=== PATIENT | male | born 1965 | race Caucasian/White ===

== ENCOUNTER 2020-02-12 14:28 | Inpatient (IN) | payer BC, OTHER, SELFPAY ==
--- NOTE | 2020-02-12 15:28 | EDM.PDOC ---
ED HPI GENERAL MEDICAL PROBLEM - General Chief Complaint: Lower Extremity Injury/Pain Stated Complaint: [facility] Time Seen by Provider: 02/12/20 15:05 Source of Information: Reports: Patient, EMS History Limitations: Reports: No Limitations - History of Present Illness INITIAL COMMENTS - FREE TEXT/NARRATIVE: 54-year-old male had a lightheaded episode at home and stumbled and fell onto his right hip and right ankle. He is a poorly controlled type I diabetic with chronic neuropathy and retinopathy, has fairly frequent falls but this time he has more pain than usual and needed to be checked because he cannot bear weight on the right side. He is not concerned about the lightheadedness or glucose levels. EMS when O2 was placed this morning at 6 AM after his fall, he was assessed and decided to wait but he was not improving so ambulance went back out there and brought him in this afternoon. The fall happened 8 hours ago. Onset: Sudden Duration: Hour(s): (Fell 8 hours ago) Location: Reports: Lower Extremity, Right Associated Symptoms: Reports: Other (Has significant neuropathy but no acute changes) - Related Data Allergies Allergy/AdvReac Type Severity Reaction Status Date / Time liraglutide [From Victoza] Allergy Abdominal Verified 12/25/15 09:48 Pain metformin Allergy Diarrhea Verified 12/25/15 09:48 Home Meds: Home Meds atenoloL [Tenormin] 25 mg PO BEDTIME 06/22/13 [History] ClonazePAM [KlonoPIN] 2 mg PO BEDTIME 12/25/15 [History] Gabapentin [Neurontin] 1,600 mg PO TID 12/25/15 [History] Sertraline [Zoloft] 200 mg PO DAILY 12/25/15 [History] oxyCODONE HCl [Oxycodone HCl] 20 mg PO Q8H 12/25/15 [History] ARIPiprazole [Abilify] 2 mg PO DAILY 02/12/20 [History] Insulin NPH Hum/Reg Insulin Hm [Novolin 70-30 Flexpen] 20 unit SQ BIDAC 02/12/20 [History] Prazosin HCl [Prazosin] 1 mg PO DAILY 02/12/20 [History] Past Medical History Cardiovascular History: Reports: Arrhythmia, High Cholesterol Gastrointestinal History: Reports: Chronic Diarrhea, GERD, Other (See Below) Other Gastrointestinal History: Cdiff Genitourinary History: Reports: Other (See Below) Other Genitourinary History: difficulty urinating Musculoskeletal History: Reports: Other (See Below) Other Musculoskeletal History: neuropathy Neurological History: Reports: Neuropathy, Diabetic Psychiatric History: Reports: Anxiety, Depression Endocrine/Metabolic History: Reports: Diabetes, Type II - Infectious Disease History Infectious Disease History: Reports: C-Difficile, Chicken Pox - Past Surgical History GI Surgical History: Reports: EGD Other GI Surgeries/Procedures: esophagus, acid reflux Social & Family History - Caffeine Use Caffeine Use: Reports: Soda Review of Systems - Review of Systems Review Of Systems: See Below Constitutional: Denies: Fever Eyes: Reports: Blurred Vision, Other (Significant loss of vision in the right eye from retinopathy) Mouth/Throat: Reports: Other (Significant advanced dental decay) Respiratory: Denies: Shortness of Breath, Cough Cardiovascular: Denies: Chest Pain GI/Abdominal: Denies: Abdominal Pain Musculoskeletal: Reports: Other (Right hip and right ankle pain) Skin: Reports: Bruising (Bruises fairly easily) Neurological: Reports: Other (Significant peripheral neuropathy especially the lower extremities) ED EXAM, GENERAL - Physical Exam Exam: See Below Exam Limited By: No Limitations General Appearance: Alert, No Apparent Distress Eye Exam: Bilateral Eye: EOMI, PERRL Head: Atraumatic Respiratory/Chest: No Respiratory Distress Cardiovascular: Regular Rate, Rhythm GI/Abdominal: Soft, Non-Tender Extremities: Other (. Some tenderness around the right ankle but no swelling or deformity). No: Pedal Edema Neurological: Alert, Oriented Psychiatric: Normal Affect, Normal Mood Skin Exam: Warm, Dry, Other (Patient does have several shallow dry ulcerations on the lateral aspect of the right foot, and some smaller dry ulcerations on the left foot. None look infected, very little erythema.) Course - Vital Signs Last Recorded V/S: Last Vital Signs Temp 97.0 F 02/12/20 14:59 Pulse 70 02/12/20 16:24 Resp 12 02/12/20 16:24 BP 145/84 H 02/12/20 16:24 Pulse Ox 95 02/12/20 16:24 - Orders/Labs/Meds Orders: Active Orders 24 hr Category Date Time Status Ankle Min 3V Rt [CR] Stat Exams 02/12/20 14:35 Taken Hip Min 2V or 3V w Pelvis Rt [CR] Stat Exams 02/12/20 14:35 Taken Medication Orders Acetaminophen (Tylenol) 650 mg PO Q4H PRN PRN Reason: Pain (Mild 1-3)/fever Albuterol (Proventil Neb Soln) 2.5 mg NEB Q4H PRN PRN Reason: Shortness Of Breath/wheezing Atenolol (Tenormin) 25 mg PO BEDTIME [facility] Clonazepam (Klonopin) 2 mg PO BEDTIME [facility] Gabapentin (Neurontin) 1,600 mg PO TID [facility] Hydromorphone HCl (Dilaudid) 1 mg IVPUSH Q2H PRN PRN Reason: Pain (severe 7-10) Sodium Chloride (Normal Saline) 1,000 mls @ 75 mls/hr IV ASDIRECTED [facility] Insulin Human Lispro (Humalog) 0 unit SUBCUT QIDACANDBED [facility]; Protocol Lorazepam (Ativan) 0.5 mg IVPUSH Q4H PRN PRN Reason: Nausea/Vomiting Magnesium Hydroxide (Milk Of Magnesia) 30 ml PO Q12H PRN PRN Reason: Constipation Non-Formulary Medication (Aripiprazole [Abilify]) 2 mg PO DAILY [facility] Ondansetron HCl (Zofran) 4 mg IV Q6H PRN PRN Reason: Nausea/Vomiting Ondansetron HCl (Zofran Odt) 4 mg PO Q6H PRN PRN Reason: Nausea able to take PO Oxycodone HCl (Oxycodone) 20 mg PO Q8H [facility] Oxycodone HCl (Oxycodone) 20 mg PO Q4H PRN PRN Reason: Pain Prazosin HCl (Minpress) 1 mg PO DAILY [facility] Senna/Docusate Sodium (Senna Plus) 1 tab PO BID PRN PRN Reason: Constipation Sertraline HCl (Zoloft) 200 mg PO DAILY [facility] Labs: Laboratory Tests 02/12/20 02/12/20 02/12/20 Range/Units 15:40 15:40 15:40 WBC 11.7 H (4.5-11.0) K/uL RBC 5.43 (4.30-5.90) M/uL Hgb 15.2 H (12.0-15.0) g/dL Hct 44.1 (40.0-54.0) % MCV 81 (80-98) fL MCH 28 (27-31) pg MCHC 35 (32-36) % Plt Count 373 (150-400) K/uL Neut % (Auto) 76 H (36-66) % Lymph % (Auto) 11 L (24-44) % [place] % (Auto) 12 H (2-6) % Eos % (Auto) 1 L (2-4) % Baso % (Auto) 0 (0-1) % PT 10.2 (9.5-12.0) sec INR 0.93 (0.80-1.20) Sodium 126 L (140-148) mmol/L Potassium 4.2 (3.6-5.2) mmol/L Chloride 91 L (100-108) mmol/L Carbon Dioxide 27 (21-32) mmol/L Anion Gap 12.2 (5.0-14.0) mmol/L BUN 18 D (7-18) mg/dL Creatinine 1.2 (0.8-1.3) mg/dL Est Cr Clr Drug Dosing 75.82 mL/min Estimated GFR (MDRD) > 60 (>60) Glucose 514 H* (74-106) mg/dL Calcium 9.5 (8.5-10.1) mg/dL Meds: Medications Generic Name Dose Route Start Last Admin Trade Name Freq PRN Reason Stop Dose Admin Acetaminophen 650 mg 02/12/20 16:54 Tylenol PO Q4H PRN Pain (Mild 1-3)/fever Albuterol 2.5 mg 02/12/20 16:54 Proventil Neb Soln NEB Q4H PRN Shortness Of Breath/wheezing Atenolol 25 mg 02/12/20 21:00 Tenormin PO BEDTIME [facility] Clonazepam 2 mg 02/12/20 21:00 Klonopin PO BEDTIME [facility] Gabapentin 1,600 mg 02/12/20 21:00 Neurontin PO TID [facility] Hydromorphone HCl 1 mg 02/12/20 16:54 Dilaudid IVPUSH Q2H PRN Pain (severe 7-10) Sodium Chloride 1,000 mls @ 75 mls/hr 02/12/20 22:00 Normal Saline IV ASDIRECTED [facility] Insulin Human Lispro 0 unit 02/12/20 17:00 Humalog SUBCUT QIDACANDBED [facility] Protocol Lorazepam 0.5 mg 02/12/20 16:54 Ativan IVPUSH Q4H PRN Nausea/Vomiting Magnesium Hydroxide 30 ml 02/12/20 16:54 Milk Of Magnesia PO Q12H PRN Constipation Non-Formulary Medication 2 mg 02/13/20 09:00 Aripiprazole [Abilify] PO DAILY [facility] Ondansetron HCl 4 mg 02/12/20 16:54 Zofran IV Q6H PRN Nausea/Vomiting Ondansetron HCl 4 mg 02/12/20 16:54 Zofran Odt PO Q6H PRN Nausea able to take PO Oxycodone HCl 20 mg 02/12/20 22:00 Oxycodone PO Q8H [facility] Oxycodone HCl 20 mg 02/12/20 16:54 Oxycodone PO Q4H PRN Pain Prazosin HCl 1 mg 02/13/20 09:00 Minpress PO DAILY [facility] Senna/Docusate Sodium 1 tab 02/12/20 16:54 Senna Plus PO BID PRN Constipation Sertraline HCl 200 mg 02/13/20 09:00 Zoloft PO DAILY [facility] Discontinued Medications Generic Name Dose Route Start Last Admin Trade Name Freq PRN Reason Stop Dose Admin Hydromorphone HCl 0.5 mg 02/12/20 15:42 02/12/20 15:47 Dilaudid IVPUSH 02/12/20 15:43 0.5 mg ONETIME ONE Administration Insulin Human Regular 20 unit 02/12/20 16:14 02/12/20 16:32 Humulin R SUBCUT 02/12/20 16:15 20 unit ONETIME ONE Administration - Re-Assessments/Exams Free Text/Narrative Re-Assessment/Exam: 02/12/20 15:29 Right hip x-ray and right ankle x-ray were obtained, ankle is normal but hip shows what appears to be a nondisplaced subcapsular impaction fracture. CT will be done to confirm. 02/12/20 15:51 CBC and BMP were obtained. IV was started and the patient was given an extra 0.5 mg of IV Dilaudid for pain control. 02/12/20 15:56 There is a right hip fracture. This is a subcapital neck fracture extending into the base of the femoral head with minimal impaction and minimal rotation as seen from the sagittal plane. Minimal regional soft tissue swelling. No definite joint effusion. No acetabular or innominate bone fracture Departure - Departure Time of Disposition: 17:30 Disposition: Admitted As Inpatient 67 Clinical Impression: Diabetes mellitus, insulin dependent (IDDM), uncontrolled Subcapital fracture of right hip Qualifiers: Encounter type: initial encounter Fracture type: closed Qualified Code(s): S72.011A - Unspecified intracapsular fracture of right femur, initial encounter for closed fracture - Discharge Information Sepsis Event Note (ED) - Evaluation Sepsis Screening Result: No Definite Risk - Focused Exam Vital Signs: Vital Signs Temp Pulse Resp BP Pulse Ox 02/12/20 16:24 70 12 145/84 H 95 02/12/20 14:59 97.0 F 73 14 120/74 98 - My Orders Last 24 Hours: My Active Orders 02/12/20 14:35 Ankle Min 3V Rt [CR] Stat Hip Min 2V or 3V w Pelvis Rt [CR] Stat - Assessment/Plan Last 24 Hours: My Active Orders 02/12/20 14:35 Ankle Min 3V Rt [CR] Stat Hip Min 2V or 3V w Pelvis Rt [CR] Stat
[2020-02-12] MEDS ORDERED: HYDROmorphone 0.5 MG/0.5 ML Syringe IVPUSH ONE (15:42)
--- NOTE | 2020-02-12 15:58 | CRLCT ---
Indication: Trauma. Technique: CT examination of the right hip was performed. Imaging was acquired from the umbilicus through the subtrochanteric area. Multiple windows were reviewed. Sagittal and coronal reformatted imaging was obtained. Contrast was not administered. Comparison: A plain film dated February 12, 2020 Findings: Bone mineral density is decreased. There are degenerative changes of the small lower lumbar spine. There is mild bilateral hip joint osteoarthritis. There is a right hip fracture. This is a subcapital neck fracture extending into the base of the femoral head with minimal impaction and minimal rotation as seen from the sagittal plane. Minimal regional soft tissue swelling. No definite joint effusion. No acetabular or innominate bone fracture Impression: Right hip fracture as described Please note that all CT scans at this facility use dose modulation, iterative reconstruction, and/or weight-based dosing when appropriate to reduce radiation dose to as low as reasonably achievable. Dictated by Andres Kaminski MD @ Feb 12 2020 3:51PM Signed by Dr. Andres Kaminski @ Feb 12 2020 3:55PM
[2020-02-12] MEDS ORDERED: Insulin Regular, Human 100 Units/ML 3 ML Vial SUBCUT ONE (16:14)
[2020-02-12] MEDS ORDERED: Ondansetron 4 MG/2 ML SDV IV PRN (16:54)
[2020-02-12] MEDS ORDERED: Magnesium Hydroxide 400 MG/5 ML Susp 30 ML Cup PO PRN (16:54)
[2020-02-12] MEDS ORDERED: LORazepam 2 MG/ML SDV IVPUSH PRN (16:54)
[2020-02-12] MEDS ORDERED: Acetaminophen 325 MG Tab PO PRN (16:54)
[2020-02-12] MEDS ORDERED: Ondansetron 4 MG Tab.DIS PO PRN (16:54)
[2020-02-12] MEDS ORDERED: Albuterol 0.083% 2.5 MG/3 ML Neb Soln NEB PRN (16:54)
--- NOTE | 2020-02-12 17:23 | PCM.HP.2 ---
H&P History of Present Illness - General Date of Service: 02/12/20 Admit Problem/Dx: Admission Diagnosis/Problem Admission Diagnosis/Problem Fracture of right hip Source of Information: Patient, Family, Provider History Limitations: Reports: No Limitations - History of Present Illness Initial Comments - Free Text/Narative: CC: I got dizzy and fell down HPI: Yosef presents to the emergency room today with right hip pain. He reports that he got out of bed this morning and got lightheaded and fell down. He fell sideways landing on his right hip. He had immediate and severe sharp pain in the right hip. He had difficulty bearing weight. He was evaluated by the ambulance but did not want to be transferred at that time. His pain has persisted and worsened throughout the day so he came in for evaluation. The pain gets much worse with any sort of movement. He has been taking his usual doses of oxycodone and they have not helped the pain. He is unable to bear diane ght. He reports that things had been normal for him prior to the fall. It is not unusual for him to have episodes of lightheadedness. No complaints of shortness of breath or cough. No fever, sick contacts or travel. No change in bowel or bladder habits from baseline. He has significant neuropathy of both lower legs. His functional status is not great and he would not be able to walk a block because of deconditioning. Blood sugars have not been well controlled and his goal is to keep his blood sugars from dropping below 200. Work-up in the emergency room revealed an impacted subcapital fracture of the right hip. He will be admitted for surgical management. - Related Data Allergies/Adverse Reactions: Allergies Allergy/AdvReac Type Severity Reaction Status Date / Time liraglutide [From Victoza] Allergy Abdominal Verified 12/25/15 09:48 Pain metformin Allergy Diarrhea Verified 12/25/15 09:48 Home Medications: Home Meds atenoloL [Tenormin] 25 mg PO BEDTIME 06/22/13 [History] ClonazePAM [KlonoPIN] 2 mg PO BEDTIME 12/25/15 [History] Gabapentin [Neurontin] 1,600 mg PO TID 12/25/15 [History] Sertraline [Zoloft] 200 mg PO DAILY 12/25/15 [History] oxyCODONE HCl [Oxycodone HCl] 20 mg PO Q8H 12/25/15 [History] ARIPiprazole [Abilify] 2 mg PO DAILY 02/12/20 [History] Insulin NPH Hum/Reg Insulin Hm [Novolin 70-30 Flexpen] 20 unit SQ BIDAC 02/12/20 [History] Prazosin HCl [Prazosin] 1 mg PO DAILY 02/12/20 [History] Past Medical History Cardiovascular History: Reports: Arrhythmia, High Cholesterol Gastrointestinal History: Reports: Chronic Diarrhea, GERD, Other (See Below) Other Gastrointestinal History: Cdiff Genitourinary History: Reports: Other (See Below) Other Genitourinary History: difficulty urinating Musculoskeletal History: Reports: Other (See Below) Other Musculoskeletal History: neuropathy Neurological History: Reports: Neuropathy, Diabetic Psychiatric History: Reports: Anxiety, Depression Endocrine/Metabolic History: Reports: Diabetes, Type II - Infectious Disease History Infectious Disease History: Reports: C-Difficile, Chicken Pox - Past Surgical History GI Surgical History: Reports: EGD Other GI Surgeries/Procedures: esophagus, acid reflux Social & Family History - Family History Other Family History: No family history of difficulty with anesthesia - Tobacco Use Tobacco Use Status *Q: Current Every Day Tobacco User Tobacco Use Within Last Twelve Months: Smokeless Tobacco - Caffeine Use Caffeine Use: Reports: Soda H&P Review of Systems - Review of Systems: Review Of Systems: See Below Free Text/Narrative: A complete 12 point review of systems was obtained. Pertinent positives and negatives are noted in the history of present illness. All other systems were reviewed and were negative except as noted. Exam - Exam Exam: See Below - Vital Signs Vital Signs: Last Vital Signs Temp 36.1 C 02/12/20 14:59 Pulse 70 02/12/20 16:24 Resp 12 02/12/20 16:24 BP 145/84 H 02/12/20 16:24 Pulse Ox 95 02/12/20 16:24 Weight: 81.647 kg - Exam Quality Assessment: No: Supplemental Oxygen General: Alert, Oriented, Cooperative. No: Mild Distress HEENT: Conjunctiva Clear, Other (Very poor dentition with few remaining teeth). No: Mucosa Moist & [place] (dry), Scleral Icterus Neck: Supple, Trachea Midline. No: Lymphadenopathy Lungs: Clear to Auscultation, Normal Respiratory Effort Cardiovascular: Regular Rate, Regular Rhythm. No: Systolic Murmur GI/Abdominal Exam: Normal Bowel Sounds, Soft, Non-Tender, No Distention Extremities: No Pedal Edema, Other (Moderate to moderately severe tenderness to palpation over the right lateral hip. Hip is flexed slightly as is the knee.). No: Increased Warmth Peripheral Pulses: 2+: Dorsalis Pedis (L), Dorsalis Pedis (R) Skin: Warm, Dry. No: Wound (No diabetic ulcers on the bottom of either foot) Neuro Extensive - Mental Status: Alert, Oriented x3, Nl Response to Commands Neuro Extensive - Motor, Sensory, Reflexes: No: Dysarthria, Abnormal Motor, Tremor Psychiatric: Alert, Normal Affect - Patient Data Lab Results Last 24 hrs: Laboratory Results - last 24 hr 02/12/20 02/12/20 02/12/20 Range/Units 15:40 15:40 15:40 WBC 11.7 H (4.5-11.0) K/uL RBC 5.43 (4.30-5.90) M/uL Hgb 15.2 H (12.0-15.0) g/dL Hct 44.1 (40.0-54.0) % MCV 81 (80-98) fL MCH 28 (27-31) pg MCHC 35 (32-36) % Plt Count 373 (150-400) K/uL Neut % (Auto) 76 H (36-66) % Lymph % (Auto) 11 L (24-44) % [place] % (Auto) 12 H (2-6) % Eos % (Auto) 1 L (2-4) % Baso % (Auto) 0 (0-1) % PT 10.2 (9.5-12.0) sec INR 0.93 (0.80-1.20) Sodium 126 L (140-148) mmol/L Potassium 4.2 (3.6-5.2) mmol/L Chloride 91 L (100-108) mmol/L Carbon Dioxide 27 (21-32) mmol/L Anion Gap 12.2 (5.0-14.0) mmol/L BUN 18 D (7-18) mg/dL Creatinine 1.2 (0.8-1.3) mg/dL Est Cr Clr Drug Dosing 75.82 mL/min Estimated GFR (MDRD) > 60 (>60) Glucose 514 H* (74-106) mg/dL Calcium 9.5 (8.5-10.1) mg/dL Result Diagrams: 02/12/20 15:40 02/12/20 15:40 Imaging Impressions Last 24 hrs: All images below were personally reviewed Right ankle x-ray-no evidence for fracture or dislocation Right hip [id number] subcapital fracture with impaction. No obvious dislocation. CT scan of the right hip-mildly impacted subcapital fracture of the right hip. Sepsis Event Note - Evaluation Sepsis Screening Result: No Definite Risk - Focused Exam Vital Signs: Vital Signs Temp Pulse Resp BP Pulse Ox 02/12/20 16:24 70 12 145/84 H 95 02/12/20 14:59 36.1 C 73 14 120/74 98 *Q Meaningful Use (ADM) - VTE *Q VTE Pharmacological Contraindications *Q: Patient Scheduled Surgery - VTE Risk Assess *Q Each Risk Factor Represents 1 Point: Age 41 - 59 years Total Score 1 Point Risk Factors: 1 Each Risk Factor Represents 2 Points: None Total Score 2 Point Risk Factors: 0 Each Risk Factor Represents 3 Points: None Total Score 3 Point Risk Factors: 0 Each Risk Factor Represents 5 Points: Hip, Pelvis or Leg Fracture, Less than 1 month Total Score 5 Point Risk Factors: 5 Venous Thromboembolism Risk Factor Score *Q: 6 - Problem List (1) Subcapital fracture of right hip SNOMED Code(s): 484717882, [id number] ICD Code: S72.011A - UNSP INTRACAPSULAR FRACTURE OF RIGHT FEMUR, INIT FOR CLOS FX Status: Acute Current Visit: Yes Qualifiers: Encounter type: initial encounter Fracture type: closed Qualified Code(s): S72.011A - Unspecified intracapsular fracture of right femur, initial encounter for closed fracture (2) Diabetes mellitus, insulin dependent (IDDM), uncontrolled SNOMED Code(s): 69953913, 724738792 ICD Code: [id number] - Status: Chronic Current Visit: Yes (3) Chronic pain SNOMED Code(s): 30306728 ICD Code: G89.29 - OTHER CHRONIC PAIN Status: Acute Current Visit: Yes Qualifiers: Chronic pain type: chronic pain syndrome Qualified Code(s): G89.4 - Chronic pain syndrome Problem List Initiated/Reviewed/Updated: Yes Orders Last 24hrs: Active Orders 24 hr Category Date Time Status Patient Status [ADT] Routine ADT 02/12/20 16:54 Active Antiembolic Devices [RC] .Routine Care 02/12/20 16:54 Active Bedrest Bedside Commode [RC] ASDIRECTED Care 02/12/20 16:54 Active Communication Order [RC] PRN Care 02/12/20 16:54 Active Communication Order [RC] PRN Care 02/12/20 16:54 Active Diabetes Education [RC] Click to Edit Care 02/12/20 16:54 Active Intake and Output [RC] QSHIFT Care 02/12/20 16:54 Active Notify Provider Consults [RC] ASDIRECTED Care 02/12/20 16:54 Active Notify Provider Vital Signs [RC] ASDIRECTED Care 02/12/20 16:54 Active Notify Provider [RC] PRN Care 02/12/20 16:54 Active Oxygen Therapy [RC] PRN Care 02/12/20 16:54 Active RT Aerosol Therapy [RC] ASDIRECTED Care 02/12/20 16:54 Active VTE/DVT Education [RC] Per Unit Routine Care 02/12/20 16:54 Active Vital Signs [RC] Q4H Care 02/12/20 16:54 Active Consult to Physician [CONS] Routine Cons 02/12/20 16:54 Ordered Consistent Carbohydrate Diet [DIET] Diet 02/12/20 Dinner Active Nothing per Oral After Midnight Diet [DIET] Diet 02/12/20 Dinner Active Ankle Min 3V Rt [CR] Stat Exams 02/12/20 14:35 Taken Hip Min 2V or 3V w Pelvis Rt [CR] Stat Exams 02/12/20 14:35 Taken BASIC METABOLIC PANEL,BMP [CHEM] AM Lab 02/13/20 05:11 Ordered CBC W/O DIFF,HEMOGRAM [HEME] AM Lab 02/13/20 05:11 Ordered CORONAVIRUS COVID-19 JU [MOLEC] Routine Lab 02/12/20 17:01 Ordered GLUCOSE POC LAB TO COLLECT JPM [POC] QIDACANDBED Lab 02/13/20 07:30 Ordered GLUCOSE POC LAB TO COLLECT JPM [POC] QIDACANDBED Lab 02/13/20 11:30 Ordered GLUCOSE POC LAB TO COLLECT JPM [POC] QIDACANDBED Lab 02/13/20 16:30 Ordered GLUCOSE POC LAB TO COLLECT JPM [POC] QIDACANDBED Lab 02/13/20 21:00 Ordered GLUCOSE POC LAB TO COLLECT JPM [POC] QIDACANDBED Lab 02/14/20 07:30 Ordered GLUCOSE POC LAB TO COLLECT JPM [POC] QIDACANDBED Lab 02/14/20 11:30 Ordered GLUCOSE POC LAB TO COLLECT JPM [POC] QIDACANDBED Lab 02/14/20 16:30 Ordered GLUCOSE POC LAB TO COLLECT JPM [POC] QIDACANDBED Lab 02/14/20 21:00 Ordered GLUCOSE POC LAB TO COLLECT JPM [POC] QIDACANDBED Lab 02/15/20 07:30 Ordered GLUCOSE POC LAB TO COLLECT JPM [POC] QIDACANDBED Lab 02/15/20 11:30 Ordered GLUCOSE POC LAB TO COLLECT JPM [POC] QIDACANDBED Lab 02/15/20 16:30 Ordered GLUCOSE POC LAB TO COLLECT JPM [POC] QIDACANDBED Lab 02/15/20 21:00 Ordered GLUCOSE POC LAB TO COLLECT JPM [POC] QIDACANDBED Lab 02/16/20 07:30 Ordered GLUCOSE POC LAB TO COLLECT JPM [POC] QIDACANDBED Lab 02/16/20 11:30 Ordered GLUCOSE POC LAB TO COLLECT JPM [POC] QIDACANDBED Lab 02/16/20 16:30 Ordered GLUCOSE POC LAB TO COLLECT JPM [POC] QIDACANDBED Lab 02/16/20 21:00 Ordered GLUCOSE POC LAB TO COLLECT JPM [POC] QIDACANDBED Lab 02/17/20 07:30 Ordered GLUCOSE POC LAB TO COLLECT JPM [POC] QIDACANDBED Lab 02/17/20 11:30 Ordered GLUCOSE POC LAB TO COLLECT JPM [POC] QIDACANDBED Lab 02/17/20 16:30 Ordered GLUCOSE POC LAB TO COLLECT JPM [POC] QIDACANDBED Lab 02/17/20 21:00 Ordered GLUCOSE POC LAB TO COLLECT JPM [POC] QIDACANDBED Lab 02/18/20 07:30 Ordered ARIPiprazole [Abilify] Med 02/13/20 09:00 Pending 2 mg PO DAILY Acetaminophen [TylenoL] Med 02/12/20 16:54 Active 650 mg PO Q4H PRN Albuterol [Proventil Neb Soln] Med 02/12/20 16:54 Active 2.5 mg NEB Q4H PRN ClonazePAM [KlonoPIN] Med 02/12/20 21:00 Active 2 mg PO BEDTIME Docusate Sodium/Sennosides [Senna Plus] Med 02/12/20 16:54 Active 1 tab PO BID PRN Gabapentin [Neurontin] Med 02/12/20 21:00 Active 1,600 mg PO TID HYDROmorphone [Dilaudid] Med 02/12/20 16:54 Active 1 mg IVPUSH Q2H PRN Insulin Lispro [HumaLOG] Med 02/12/20 17:00 Active See Protocol SUBCUT QIDACANDBED LORazepam [Ativan] Med 02/12/20 16:54 Active 0.5 mg IVPUSH Q4H PRN Magnesium Hydroxide [Milk of Magnesia] Med 02/12/20 16:54 Active 30 ml PO Q12H PRN Ondansetron [Zofran ODT] Med 02/12/20 16:54 Active 4 mg PO Q6H PRN Ondansetron [Zofran] Med 02/12/20 16:54 Active 4 mg IV Q6H PRN Prazosin [Minpress] Med 02/13/20 09:00 Active 1 mg PO DAILY Sertraline [Zoloft] Med 02/13/20 09:00 Active 200 mg PO DAILY Sodium Chloride 0.9% [Normal Saline] 1,000 ml Med 02/12/20 22:00 Active IV ASDIRECTED atenoloL [Tenormin] Med 02/12/20 21:00 Active 25 mg PO BEDTIME oxyCODONE Med 02/12/20 16:54 Active 20 mg PO Q4H PRN oxyCODONE Med 02/12/20 22:00 Active 20 mg PO Q8H Sequential Compression Device [OM.PC] Routine Oth 02/12/20 16:54 Ordered VTE Pharmacological Contraindications [AST] Routine Oth 02/12/20 16:54 Ordered Resuscitation Status Routine Resus Stat 02/12/20 16:30 Ordered Medication Orders Acetaminophen (Tylenol) 650 mg PO Q4H PRN PRN Reason: Pain (Mild 1-3)/fever Albuterol (Proventil Neb Soln) 2.5 mg NEB Q4H PRN PRN Reason: Shortness Of Breath/wheezing Atenolol (Tenormin) 25 mg PO BEDTIME [facility] Clonazepam (Klonopin) 2 mg PO BEDTIME [facility] Gabapentin (Neurontin) 1,600 mg PO TID [facility] Hydromorphone HCl (Dilaudid) 1 mg IVPUSH Q2H PRN PRN Reason: Pain (severe 7-10) Sodium Chloride (Normal Saline) 1,000 mls @ 75 mls/hr IV ASDIRECTED [facility] Insulin Human Lispro (Humalog) 0 unit SUBCUT QIDACANDBED [facility]; Protocol Lorazepam (Ativan) 0.5 mg IVPUSH Q4H PRN PRN Reason: Nausea/Vomiting Magnesium Hydroxide (Milk Of Magnesia) 30 ml PO Q12H PRN PRN Reason: Constipation Non-Formulary Medication (Aripiprazole [Abilify]) 2 mg PO DAILY [facility] Ondansetron HCl (Zofran) 4 mg IV Q6H PRN PRN Reason: Nausea/Vomiting Ondansetron HCl (Zofran Odt) 4 mg PO Q6H PRN PRN Reason: Nausea able to take PO Oxycodone HCl (Oxycodone) 20 mg PO Q8H [facility] Oxycodone HCl (Oxycodone) 20 mg PO Q4H PRN PRN Reason: Pain Prazosin HCl (Minpress) 1 mg PO DAILY [facility] Senna/Docusate Sodium (Senna Plus) 1 tab PO BID PRN PRN Reason: Constipation Sertraline HCl (Zoloft) 200 mg PO DAILY [facility] Assessment/Plan Comment:: ASSESSMENT AND PLAN - Impacted subcapsular fracture of the right hip-surgical intervention is planned. Pain is adequately controlled at this time. Patient does not have a great fu nctional status and his diabetes is not well controlled but this is probably as medically optimized as he will be. At this point I think the benefits of surgery outweigh the risks. Patient is agreeable to surgical intervention and understands that his surgery and recovery may be hampered by his deconditioning. No personal or family history of difficulty with anesthesia. No obvious contraindication to surgery. -Pain control -Nonweightbearing right hip -Surgical intervention with Dr. Rojas tomorrow -Physical therapy when appropriate after surgery Insulin-dependent diabetes mellitus, poorly controlled-patient reports that his goal is to keep his blood sugars from dropping below 200 since he does not feel good if they are below that level. He is not consistent with his medications. He has neuropathy and retinopathy because of his diabetes. He has significant hyperglycemia in the emergency room at this time. He did receive 20 units of insulin in the emergency room. -Hold 70/30 mix since he will be n.p.o. -Moderate dose sliding scale insulin -Regular Accu-Cheks -Restart long-acting insulin after surgery Chronic pain syndrome-secondary to neuropathy. -Continue outpatient management including high-dose oxycodone Tobacco dependence-patient uses chewing tobacco regularly. -Nicotine patch Maintenance issues - - DVT prophylaxis -mechanical - GI prophylaxis -not indicated - Nutrition -n.p.o. after midnight - Hunt catheter -anticipate 1 will be placed at the time of surgery tomorrow CODE STATUS -full code Admission justification -this patient will be admitted for inpatient services and is medically appropriate meeting medical necessity for inpatient admission as outlined in my documentation. I reasonably expect the patient will require inpatient services that span a period time over 2 midnights. I reasonably expect this patient to be discharged or transferred within 96 hours after admission to the [facility]. Disposition -I would anticipate discharge home versus possibly to subacute rehab after the hospital stay Primary care physician - Dr Higinio Shelton M.D. - Mortality Measure Prognosis:: Good
[2020-02-12] MEDS: Insulin Lispro 100 Unit/ML 3 ML KwikPen SUBCUT SCH ×2 (18:19→20:40)
[2020-02-12] MEDS: Nicotine 14 MG/24 Hr Patch TRDERM PRN (20:32)
[2020-02-12] MEDS: Gabapentin 400 MG Cap PO SCH (20:35)
[2020-02-12] MEDS: Atenolol 25 MG Tab PO SCH (20:36)
[2020-02-12] MEDS: oxyCODONE 5 MG Tab PO PRN (20:36)
[2020-02-12] MEDS: ClonazePAM 1 MG Tab PO SCH (20:36)
[2020-02-12] MEDS: Sodium Chloride 0.9% 1,000 ML IV SCH (22:28)
[2020-02-12] MEDS: oxyCODONE 5 MG Tab PO SCH (22:30)
[2020-02-12] MEDS: HYDROmorphone 1 MG/ML Syringe IVPUSH PRN (22:33)
[2020-02-13] MEDS: oxyCODONE 5 MG Tab PO SCH ×3 (05:07→21:25)
[2020-02-13] MEDS: Insulin Lispro 100 Unit/ML 3 ML KwikPen SUBCUT SCH ×4 (07:52→21:22)
[2020-02-13] MEDS: Prazosin 1 MG Cap PO SCH (08:02)
[2020-02-13] MEDS: Sertraline 50 MG Tab PO SCH (08:03)
[2020-02-13] MEDS: Gabapentin 400 MG Cap PO SCH ×3 (08:03→21:24)
[2020-02-13] MEDS ORDERED: ARIPiprazole 10 MG Tab PO SCH (09:00)
[2020-02-13] MEDS: Sodium Chloride 0.9% 1,000 ML IV SCH ×2 (11:22→18:56)
[2020-02-13] MEDS ORDERED: Bupivacaine 0.5%/EPINEPHrine 1:200,000 50 ML MDV ONE (11:43)
[2020-02-13] MEDS ORDERED: Midazolam 1 MG/ML 2 ML SDV ONE (13:03)
[2020-02-13] MEDS ORDERED: Propofol 200 MG/20 ML SDV ONE ×2 (13:03→17:34)
[2020-02-13] MEDS ORDERED: fentaNYL 100 MCG/2 ML SDV ONE (13:03)
--- NOTE | 2020-02-13 13:32 | CR ---
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 There is some irregular density in the subcapital region of the right femur. There is also slight lateral cortical irregularity. Previous impaction fracture is not excluded. IMPRESSION: Mild deformity of the right proximal femur in the subcapital region. A previous nondisplaced impaction fracture is not excluded. Chronology is uncertain. If clinical symptomatology persists or worsens a repeat exam is recommended.
--- NOTE | 2020-02-13 13:36 | CR ---
Ankle Min 3V Rt CLINICAL HISTORY: Fall, pain FINDINGS: The soft tissues are normal. No acute fracture or dislocation is noted. Ankle mortise is intact. Articular surfaces are smooth. Patient has a large calcaneal spur. Impression: No fracture Large calcaneal spur
--- NOTE | 2020-02-13 15:36 | PCM.PN ---
- General Info Date of Service: 02/13/20 Subjective Update: Mr. Poole is a 54-year-old gentleman who was admitted through the emergency department yesterday with right hip pain secondary to a right hip fracture. He has a history of longstanding type 2 diabetes mellitus with poor control. He is not interested in improving diabetes control and overall his goal is to keep his blood sugar greater than 200 because this is when he feels the best. Glucose levels have been elevated since admission he is currently n.p.o. pending surgical repair of his hip fracture. - Review of Systems Pulmonary: Reports: No Symptoms Cardiovascular: Reports: No Symptoms Gastrointestinal: Reports: No Symptoms Musculoskeletal: Reports: Other (Right hip pain) - Patient Data Vitals - Most Recent: Last Vital Signs Temp 97.2 F 02/13/20 07:57 Pulse 65 02/13/20 12:38 Resp 16 02/13/20 12:38 BP 110/67 02/13/20 12:38 Pulse Ox 99 02/13/20 12:38 Weight - Most Recent: 187 lb 0.008 oz I&O - Last 24 Hours: Intake & Output 02/13/20 02/13/20 02/13/20 06:59 14:59 22:59 Intake Total 600 Output Total 775 800 Balance -175 -800 Lab Results Last 24 Hours: Laboratory Results - last 24 hr 02/12/20 02/12/20 02/12/20 Range/Units 15:40 15:40 15:40 WBC 11.7 H (4.5-11.0) K/uL RBC 5.43 (4.30-5.90) M/uL Hgb 15.2 H (12.0-15.0) g/dL Hct 44.1 (40.0-54.0) % MCV 81 (80-98) fL MCH 28 (27-31) pg MCHC 35 (32-36) % Plt Count 373 (150-400) K/uL Neut % (Auto) 76 H (36-66) % Lymph % (Auto) 11 L (24-44) % [place] % (Auto) 12 H (2-6) % Eos % (Auto) 1 L (2-4) % Baso % (Auto) 0 (0-1) % PT 10.2 (9.5-12.0) sec INR 0.93 (0.80-1.20) Sodium 126 L (140-148) mmol/L Potassium 4.2 (3.6-5.2) mmol/L Chloride 91 L (100-108) mmol/L Carbon Dioxide 27 (21-32) mmol/L Anion Gap 12.2 (5.0-14.0) mmol/L BUN 18 D (7-18) mg/dL Creatinine 1.2 (0.8-1.3) mg/dL Est Cr Clr Drug Dosing 75.82 mL/min Estimated GFR (MDRD) > 60 (>60) Glucose 514 H* (74-106) mg/dL Calcium 9.5 (8.5-10.1) mg/dL SARS-CoV-2 RNA (JU) (NEGATIVE) 02/12/20 02/13/20 02/13/20 Range/Units 17:01 04:10 04:10 WBC 11.1 H (4.5-11.0) K/uL RBC 4.92 (4.30-5.90) M/uL Hgb 13.8 (12.0-15.0) g/dL Hct 40.6 (40.0-54.0) % MCV 83 (80-98) fL MCH 28 (27-31) pg MCHC 34 (32-36) % Plt Count 333 (150-400) K/uL Neut % (Auto) (36-66) % Lymph % (Auto) (24-44) % [place] % (Auto) (2-6) % Eos % (Auto) (2-4) % Baso % (Auto) (0-1) % PT (9.5-12.0) sec INR (0.80-1.20) Sodium 132 L (140-148) mmol/L Potassium 4.0 (3.6-5.2) mmol/L Chloride 96 L (100-108) mmol/L Carbon Dioxide 29 (21-32) mmol/L Anion Gap 11.0 (5.0-14.0) mmol/L BUN 22 H (7-18) mg/dL Creatinine 1.1 (0.8-1.3) mg/dL Est Cr Clr Drug Dosing 82.72 mL/min Estimated GFR (MDRD) > 60 (>60) Glucose 360 H (74-106) mg/dL Calcium 8.9 (8.5-10.1) mg/dL SARS-CoV-2 RNA (JU) Negative (NEGATIVE) Med Orders - Current: Current Medications Acetaminophen (Tylenol) 650 mg PO Q4H PRN PRN Reason: Pain (Mild 1-3)/fever Last Admin: 02/12/20 20:36 Dose: 650 mg Documented by: Albuterol (Proventil Neb Soln) 2.5 mg NEB Q4H PRN PRN Reason: Shortness Of Breath/wheezing Atenolol (Tenormin) 25 mg PO BEDTIME [facility] Last Admin: 02/12/20 20:36 Dose: 25 mg Documented by: Clonazepam (Klonopin) 2 mg PO BEDTIME [facility] Last Admin: 02/12/20 20:36 Dose: 2 mg Documented by: Gabapentin (Neurontin) 1,600 mg PO TID [facility] Last Admin: 02/13/20 14:01 Dose: 1,600 mg Documented by: Hydromorphone HCl (Dilaudid) 1 mg IVPUSH Q2H PRN PRN Reason: Pain (severe 7-10) Last Admin: 02/12/20 22:33 Dose: 1 mg Documented by: Sodium Chloride (Normal Saline) 1,000 mls @ 75 mls/hr IV ASDIRECTED [facility] Last Admin: 02/13/20 11:22 Dose: 75 mls/hr Documented by: Cefazolin Sodium 2 gm/ (Dextrose/Water) 100 mls @ 200 mls/hr IV ONETIME ONE Stop: 02/13/20 17:59 Insulin Human Lispro (Humalog) 0 unit SUBCUT QIDACANDBED [facility]; Protocol Last Admin: 02/13/20 11:19 Dose: 6 units Documented by: Lorazepam (Ativan) 0.5 mg IVPUSH Q4H PRN PRN Reason: Nausea/Vomiting Magnesium Hydroxide (Milk Of Magnesia) 30 ml PO Q12H PRN PRN Reason: Constipation Nicotine (Habitrol) 14 mg TRDERM DAILY PRN PRN Reason: nicotine craving Last Admin: 02/12/20 20:32 Dose: 14 mg Documented by: Ondansetron HCl (Zofran) 4 mg IV Q6H PRN PRN Reason: Nausea/Vomiting Ondansetron HCl (Zofran Odt) 4 mg PO Q6H PRN PRN Reason: Nausea able to take PO Oxycodone HCl (Oxycodone) 20 mg PO Q8H [facility] Last Admin: 02/13/20 14:00 Dose: 20 mg Documented by: Oxycodone HCl (Oxycodone) 20 mg PO Q4H PRN PRN Reason: Pain Last Admin: 02/12/20 20:36 Dose: 20 mg Documented by: Aripiprazole 2mg (Ptom) 0 each PO BEDTIME [facility] Pneumococcal Polyvalent Vaccine (Pneumovax 23) 0.5 ml IM .ONCE ONE Stop: 02/15/20 10:01 Prazosin HCl (Minpress) 1 mg PO DAILY [facility] Last Admin: 02/13/20 08:02 Dose: 1 mg Documented by: Senna/Docusate Sodium (Senna Plus) 1 tab PO BID PRN PRN Reason: Constipation Sertraline HCl (Zoloft) 200 mg PO DAILY [facility] Last Admin: 02/13/20 08:03 Dose: 200 mg Documented by: Discontinued Medications Bupivacaine HCl/Epinephrine Bitart (Marcaine 0.5%/Epinephrine 1:200,000) Confirm Administered Dose 50 ml .ROUTE .STK-MED ONE Stop: 02/13/20 11:44 Fentanyl (Sublimaze) Confirm Administered Dose 100 mcg .ROUTE .STK-MED ONE Stop: 02/13/20 13:04 Hydromorphone HCl (Dilaudid) 0.5 mg IVPUSH ONETIME ONE Stop: 02/12/20 15:43 Last Admin: 02/12/20 15:47 Dose: 0.5 mg Documented by: Insulin Human Regular (Humulin R) 20 unit SUBCUT ONETIME ONE Stop: 02/12/20 16:15 Last Admin: 02/12/20 16:32 Dose: 20 unit Documented by: Midazolam HCl (Versed 1 Mg/Ml) Confirm Administered Dose 2 mg .ROUTE .STK-MED ONE Stop: 02/13/20 13:04 Propofol (Diprivan 20 Ml) Confirm Administered Dose 200 mg .ROUTE .STK-MED ONE Stop: 02/13/20 13:04 - Exam General: Alert, Oriented, Cooperative, Moderate Distress Lungs: Clear to Auscultation, Normal Respiratory Effort Cardiovascular: Regular Rate, Regular Rhythm, No Murmurs GI/Abdominal Exam: Soft, Non-Tender, No Organomegaly, No Distention Extremities: Non-Tender, No Pedal Edema Sepsis Event Note - Evaluation Sepsis Screening Result: No Definite Risk - Focused Exam Vital Signs: Vital Signs Temp Pulse Resp BP BP Pulse Ox 02/13/20 12:38 65 16 110/67 99 02/13/20 08:02 110/72 02/13/20 07:57 97.2 F 65 18 110/72 02/13/20 05:00 66 12 94/52 L 94 L - Problem List Review Problem List Initiated/Reviewed/Updated: Yes - My Orders Last 24 Hours: My Active Orders 02/13/20 Breakfast NPO [Nothing Per Oral Diet] [DIET] - Plan Plan:: ASSESSMENT AND PLAN - Impacted subcapsular fracture of the right hip-surgical intervention is planned today -Pain control -Nonweightbearing right hip -Surgical intervention with Dr. Rojas -Physical therapy when appropriate after surgery Insulin-dependent diabetes mellitus, poorly controlled-patient reports that his goal is to keep his blood sugars from dropping below 200 since he does not feel good if they are below that level. He is not consistent with his medications. He has neuropathy and retinopathy because of his diabetes. He has significant hyperglycemia in the emergency room at this time. He did receive 20 units of insulin in the emergency room. -Resume 70/30 mix after surgery -Moderate dose sliding scale insulin -Regular Accu-Cheks Chronic pain syndrome-secondary to neuropathy. -Continue outpatient management including high-dose oxycodone Tobacco dependence-patient uses chewing tobacco regularly. -Nicotine patch Maintenance issues - - DVT prophylaxis -mechanical - GI prophylaxis -not indicated - Nutrition -n.p.o. after midnight - Hunt catheter -anticipate 1 will be placed at the time of surgery tomorrow CODE STATUS -full code Admission justification -this patient will be admitted for inpatient services and is medically appropriate meeting medical necessity for inpatient admission as outlined in my documentation. I reasonably expect the patient will require inpatient services that span a period time over 2 midnights. I reasonably expect this patient to be discharged or transferred within 96 hours [facility]. Disposition -I would anticipate discharge home versus possibly to subacute rehab after the hospital stay Primary care physician - Dr Sylvester
[2020-02-13] MEDS ORDERED: Ondansetron 4 MG/2 ML SDV IVPUSH PRN (18:13)
[2020-02-13] MEDS ORDERED: Acetaminophen 325 MG Tab PO PRN (18:13)
[2020-02-13] MEDS ORDERED: Acetaminophen/oxyCODONE 325-5 MG Tab PO PRN (18:13)
[2020-02-13] MEDS ORDERED: Acetaminophen/HYDROcodone 325-5 MG Tab PO PRN (18:13)
[2020-02-13] MEDS ORDERED: Morphine 2 MG/ML SYRINGE IVPUSH PRN (18:13)
[2020-02-13] MEDS ORDERED: Nicotine 21 MG/24 Hr Patch TRDERM PRN (19:34)
[2020-02-13] MEDS: Ketorolac 30 MG/ML SDV IVPUSH SCH (19:41)
[2020-02-13] MEDS: Nicotine 14 MG/24 Hr Patch TRDERM PRN (19:50)
[2020-02-13] MEDS: ClonazePAM 1 MG Tab PO SCH (21:24)
[2020-02-13] MEDS: Docusate Sodium 100 MG Cap PO SCH (21:24)
[2020-02-13] MEDS: ARIPIPRAZOLE 2 MG PO SCH (21:24)
[2020-02-13] MEDS: Atenolol 25 MG Tab PO SCH (21:25)
[2020-02-13] MEDS: Nozin Nasal Sanitizer NASBOTH SCH (21:29)
[2020-02-14] MEDS ORDERED: ceFAZolin 1 GM in Sodium Chloride 0.9% 50 ML IV SCH (01:00)
[2020-02-14] MEDS: Ketorolac 30 MG/ML SDV IVPUSH SCH ×3 (03:03→19:36)
[2020-02-14] MEDS: Sodium Chloride 0.9% 1,000 ML IV SCH ×3 (03:08→19:37)
[2020-02-14] MEDS: oxyCODONE 5 MG Tab PO SCH ×3 (05:33→21:23)
[2020-02-14] MEDS: HYDROmorphone 1 MG/ML Syringe IVPUSH PRN ×2 (07:26→11:45)
[2020-02-14] MEDS: Insulin Lispro 100 Unit/ML 3 ML KwikPen SUBCUT SCH ×4 (08:11→21:21)
[2020-02-14] MEDS: Docusate Sodium 100 MG Cap PO SCH ×3 (08:13→20:56)
[2020-02-14] MEDS: Enoxaparin 30 MG/0.3 ML Syringe SUBCUT SCH (08:13)
[2020-02-14] MEDS: Sertraline 50 MG Tab PO SCH (08:13)
[2020-02-14] MEDS: Gabapentin 400 MG Cap PO SCH ×4 (08:13→20:56)
[2020-02-14] MEDS: Prazosin 1 MG Cap PO SCH (08:14)
[2020-02-14] MEDS: ceFAZolin 1 GM in Premix Bag 1 BAG IV SCH ×2 (08:46→16:49)
[2020-02-14] MEDS: Insulin NPH/Insulin Regular,Human 70-30 100 Units/ML 10 ML Vial SUBCUT SCH ×2 (08:52→16:50)
[2020-02-14] MEDS ORDERED: Insulin NPH/Insulin Regular,Human 70-30 100 Units/ML 10 ML Vial SUBCUT SCH (09:00)
[2020-02-14] MEDS: Nozin Nasal Sanitizer NASBOTH SCH ×3 (14:49→20:55)
--- NOTE | 2020-02-14 16:29 | PCM.SURGPN ---
- General Info Date of Service: 02/14/20 Date of Surgery/Procedure: 02/13/20 Post-Op Diagnosis: Right hip fracture Functional Status: Reports: Pain Controlled, Tolerating Diet, Ambulating, Urinating - Review of Systems General: Reports: No Symptoms HEENT: Reports: No Symptoms Pulmonary: Reports: No Symptoms Cardiovascular: Reports: No Symptoms Gastrointestinal: Reports: No Symptoms Genitourinary: Reports: No Symptoms Musculoskeletal: Reports: Leg Pain (right leg), Joint Pain Skin: Reports: No Symptoms Neurological: Reports: No Symptoms Psychiatric: Reports: No Symptoms - Patient Data Vitals - Most Recent: Last Vital Signs Temp 97.7 F 02/14/20 15:18 Pulse 66 02/14/20 15:18 Resp 16 02/14/20 15:18 BP 111/63 02/14/20 15:18 Pulse Ox 95 02/14/20 15:18 Weight - Most Recent: 187 lb 0.008 oz I&O - Last 24 Hours: Intake & Output 02/14/20 02/14/20 02/14/20 06:59 14:59 22:59 Intake Total 2635 300 Output Total 1600 600 Balance 1035 -300 Lab Results Last 24 Hrs: Laboratory Results - last 24 hr 02/13/20 02/14/20 02/14/20 Range/Units 21:10 07:30 11:30 POC Glucose 292 H 297 H 270 H (74-106) MG/DL Med Orders - Current: Current Medications Acetaminophen (Tylenol) 650 mg PO Q4H PRN PRN Reason: Pain/Fever Hydrocodone Bitart/Acetaminophen ([place] 325-5 Mg) 1 tab PO Q6H PRN PRN Reason: Pain Albuterol (Proventil Neb Soln) 2.5 mg NEB Q4H PRN PRN Reason: Shortness Of Breath/wheezing Atenolol (Tenormin) 25 mg PO BEDTIME [facility] Last Admin: 02/13/20 21:25 Dose: 25 mg Documented by: Bandage/Support Products ( Nasal Lead Technical Architect) 1 applic NASBOTH BID [facility] Last Admin: 02/14/20 14:49 Dose: 1 applic Documented by: Clonazepam (Klonopin) 2 mg PO BEDTIME [facility] Last Admin: 02/13/20 21:24 Dose: 2 mg Documented by: Docusate Sodium (Colace) 100 mg PO BID [facility] Last Admin: 02/14/20 08:13 Dose: 100 mg Documented by: Enoxaparin Sodium (Lovenox) 30 mg SUBCUT DAILY [facility] Last Admin: 02/14/20 08:13 Dose: 30 mg Documented by: Gabapentin (Neurontin) 1,600 mg PO TID [facility] Last Admin: 02/14/20 14:49 Dose: 1,600 mg Documented by: Hydromorphone HCl (Dilaudid) 1 mg IVPUSH Q2H PRN PRN Reason: Pain (severe 7-10) Last Admin: 02/14/20 11:45 Dose: 1 mg Documented by: Sodium Chloride (Normal Saline) 1,000 mls @ 125 mls/hr IV ASDIRECTED [facility] Last Admin: 02/14/20 11:31 Dose: 125 mls/hr Documented by: Cefazolin Sodium/Dextrose 1 gm (/ Premix) 50 mls @ 200 mls/hr IV Q8H [facility] Stop: 02/14/20 17:14 Last Admin: 02/14/20 08:46 Dose: 200 mls/hr Documented by: Insulin Human Isoph/Insulin Regular (Humulin 70-30) 20 units SUBCUT BIDAC [facility] Last Admin: 02/14/20 08:52 Dose: 20 units Documented by: Insulin Human Lispro (Humalog) 0 unit SUBCUT QIDACANDBED [facility]; Protocol Last Admin: 02/14/20 11:50 Dose: 6 units Documented by: Ketorolac Tromethamine (Toradol) 30 mg IVPUSH Q8H [facility] Stop: 02/15/20 11:01 Last Admin: 02/14/20 11:42 Dose: 30 mg Documented by: Lorazepam (Ativan) 0.5 mg IVPUSH Q4H PRN PRN Reason: Nausea/Vomiting Magnesium Hydroxide (Milk Of Magnesia) 30 ml PO Q12H PRN PRN Reason: Constipation Morphine Sulfate (Morphine) 1 mg IVPUSH Q1H PRN PRN Reason: Breakthrough Pain Nicotine (Habitrol) 21 mg TRDERM DAILY PRN PRN Reason: nicotine craving Last Admin: 02/13/20 19:49 Dose: 21 mg Documented by: Ondansetron HCl (Zofran Odt) 4 mg PO Q6H PRN PRN Reason: Nausea able to take PO Ondansetron HCl (Zofran) 4 mg IVPUSH Q4H PRN PRN Reason: Nausea/Vomiting Oxycodone HCl (Oxycodone) 20 mg PO Q8H [facility] Last Admin: 02/14/20 14:49 Dose: 20 mg Documented by: Oxycodone HCl (Oxycodone) 20 mg PO Q4H PRN PRN Reason: Pain Last Admin: 02/12/20 20:36 Dose: 20 mg Documented by: Oxycodone/Acetaminophen (Percocet 325-5 Mg) 1 - 2 tab PO Q6H PRN PRN Reason: Pain Aripiprazole 2mg (Ptom) 0 each PO BEDTIME [facility] Last Admin: 02/13/20 21:24 Dose: 1 each Documented by: Pneumococcal Polyvalent Vaccine (Pneumovax 23) 0.5 ml IM .ONCE ONE Stop: 02/15/20 10:01 Prazosin HCl (Minpress) 1 mg PO DAILY [facility] Last Admin: 02/14/20 08:14 Dose: 1 mg Documented by: Senna/Docusate Sodium (Senna Plus) 1 tab PO BID PRN PRN Reason: Constipation Sertraline HCl (Zoloft) 200 mg PO DAILY [facility] Last Admin: 02/14/20 08:13 Dose: 200 mg Documented by: Discontinued Medications Acetaminophen (Tylenol) 650 mg PO Q4H PRN PRN Reason: Pain (Mild 1-3)/fever Last Admin: 02/12/20 20:36 Dose: 650 mg Documented by: Bupivacaine HCl/Epinephrine Bitart (Marcaine 0.5%/Epinephrine 1:200,000) Confirm Administered Dose 50 ml .ROUTE .STK-MED ONE Stop: 02/13/20 11:44 Fentanyl (Sublimaze) Confirm Administered Dose 100 mcg .ROUTE .STK-MED ONE Stop: 02/13/20 13:04 Hydromorphone HCl (Dilaudid) 0.5 mg IVPUSH ONETIME ONE Stop: 02/12/20 15:43 Last Admin: 02/12/20 15:47 Dose: 0.5 mg Documented by: Sodium Chloride (Normal Saline) 1,000 mls @ 75 mls/hr IV ASDIRECTED [facility] Last Admin: 02/13/20 11:22 Dose: 75 mls/hr Documented by: Cefazolin Sodium 2 gm/ (Dextrose/Water) 100 mls @ 200 mls/hr IV ONETIME ONE Stop: 02/13/20 17:59 Last Admin: 02/13/20 16:54 Dose: 200 mls/hr Documented by: Cefazolin Sodium 1 gm/ Sodium (Chloride) 50 mls @ 200 mls/hr IV Q8H [facility] Stop: 02/14/20 17:14 Last Admin: 02/14/20 01:05 Dose: 200 mls/hr Documented by: Insulin Human Isoph/Insulin Regular (Humulin 70-30) 20 units SUBCUT BIDAC [facility] Insulin Human Regular (Humulin R) 20 unit SUBCUT ONETIME ONE Stop: 02/12/20 16:15 Last Admin: 02/12/20 16:32 Dose: 20 unit Documented by: Midazolam HCl (Versed 1 Mg/Ml) Confirm Administered Dose 2 mg .ROUTE .STK-MED ONE Stop: 02/13/20 13:04 Nicotine (Habitrol) 14 mg TRDERM DAILY PRN PRN Reason: nicotine craving Last Admin: 02/13/20 19:50 Dose: 14 mg Documented by: Ondansetron HCl (Zofran) 4 mg IV Q6H PRN PRN Reason: Nausea/Vomiting Propofol (Diprivan 20 Ml) Confirm Administered Dose 200 mg .ROUTE .STK-MED ONE Stop: 02/13/20 13:04 Propofol (Diprivan 20 Ml) Confirm Administered Dose 200 mg .ROUTE .STK-MED ONE Stop: 02/13/20 17:35 - Exam Wound/Incisions: No Drainage General: Alert, Oriented, No Acute Distress Extremities: Joint Swelling, Limited Range of Motion, Other (diabetic neuropathy; decreased sensation of bilateral feet ) Skin: Dry Neurological: No New Focal Deficit Psy/Mental Status: Alert, Normal Affect, Normal Mood Sepsis Event Note - Evaluation Sepsis Screening Result: No Definite Risk - Focused Exam Vital Signs: Vital Signs Temp Temp Pulse Resp BP BP Pulse Ox 02/14/20 15:18 97.7 F 66 16 111/63 95 02/14/20 11:34 97.7 F 73 16 110/56 L 95 02/14/20 08:14 149/80 H 02/14/20 07:17 97.7 F 79 16 149/80 H 92 L - Problem List & Annotations (1) Status post hip surgery SNOMED Code(s): 657048913, 388095834 Code(s): Z98.890 - OTHER SPECIFIED POSTPROCEDURAL STATES Status: Acute Current Visit: Yes Annotation/Comment:: ORIF Cannulated screws right hip (2) Subcapital fracture of right hip SNOMED Code(s): 239872156, 47509300865576240 Code(s): S72.011A - UNSP INTRACAPSULAR FRACTURE OF RIGHT FEMUR, INIT FOR CLOS FX Status: Acute Current Visit: Yes Qualifiers: Encounter type: initial encounter Fracture type: closed Qualified Code(s): S72.011A - Unspecified intracapsular fracture of right femur, initial encounter for closed fracture - Problem List Review Problem List Initiated/Reviewed/Updated: Yes - My Orders Last 24 Hours: Active Orders 24 hr Category Date Time Status Patient Status [ADT] Routine ADT 02/13/20 18:14 Active Ambulate [RC] QID Care 02/13/20 18:14 Active Ambulate [RC] QID Care 02/14/20 14:01 Active Head of Bed Elevation [RC] ASDIRECTED Care 02/13/20 18:14 Active May Shower [RC] ASDIRECTED Care 02/13/20 18:14 Active Neurovascular Check [RC] Q4H Care 02/13/20 18:14 Active Oxygen Therapy [RC] PRN Care 02/13/20 18:14 Active RT Incentive Spirometry [RC] Q1HWA Care 02/13/20 18:14 Active Up to Chair [RC] QID Care 02/13/20 18:14 Active Urinary Catheter Removal [RC] PER UNIT ROUTINE Care 02/13/20 18:13 Active VTE/DVT Education [RC] Click to Edit Care 02/13/20 18:14 Active Wound Care [RC] Q12H Care 02/13/20 18:14 Active Consult to Case Management/Staff Therapist [CONS] Cons 02/13/20 18:14 Active Routine OT Evaluation and Treatment [CONS] Routine Cons 02/13/20 18:13 Active PT Evaluation and Treatment [CONS] Routine Cons 02/13/20 18:14 Active PT Evaluation and Treatment [CONS] Routine Cons 02/13/20 18:14 Active Consistent Carbohydrate Diet [DIET] Diet 02/14/20 Breakfast Active GLUCOSE POC LAB TO COLLECT JPM [POC] QIDACANDBED Lab 02/14/20 16:30 Ordered GLUCOSE POC LAB TO COLLECT JPM [POC] QIDACANDBED Lab 02/14/20 21:00 Ordered GLUCOSE POC LAB TO COLLECT JPM [POC] QIDACANDBED Lab 02/15/20 07:30 Ordered GLUCOSE POC LAB TO COLLECT JPM [POC] QIDACANDBED Lab 02/15/20 11:30 Ordered GLUCOSE POC LAB TO COLLECT JPM [POC] QIDACANDBED Lab 02/15/20 16:30 Ordered GLUCOSE POC LAB TO COLLECT JPM [POC] QIDACANDBED Lab 02/15/20 21:00 Ordered GLUCOSE POC LAB TO COLLECT JPM [POC] QIDACANDBED Lab 02/16/20 07:30 Ordered GLUCOSE POC LAB TO COLLECT JPM [POC] QIDACANDBED Lab 02/16/20 11:30 Ordered GLUCOSE POC LAB TO COLLECT JPM [POC] QIDACANDBED Lab 02/16/20 16:30 Ordered GLUCOSE POC LAB TO COLLECT JPM [POC] QIDACANDBED Lab 02/16/20 21:00 Ordered GLUCOSE POC LAB TO COLLECT JPM [POC] QIDACANDBED Lab 02/17/20 07:30 Ordered GLUCOSE POC LAB TO COLLECT JPM [POC] QIDACANDBED Lab 02/17/20 11:30 Ordered GLUCOSE POC LAB TO COLLECT JPM [POC] QIDACANDBED Lab 02/17/20 16:30 Ordered GLUCOSE POC LAB TO COLLECT JPM [POC] QIDACANDBED Lab 02/17/20 21:00 Ordered GLUCOSE POC LAB TO COLLECT JPM [POC] QIDACANDBED Lab 02/18/20 07:30 Ordered Acetaminophen [TylenoL] Med 02/13/20 18:13 Active 650 mg PO Q4H PRN Acetaminophen/HYDROcodone [[place] 325-5 MG] Med 02/13/20 18:13 Active 1 tab PO Q6H PRN Acetaminophen/oxyCODONE [Percocet 325-5 MG] Med 02/13/20 18:13 Active 1 - 2 tab PO Q6H PRN Docusate Sodium [Colace] Med 02/13/20 21:00 Active 100 mg PO BID Enoxaparin [Lovenox] Med 02/14/20 09:00 Active 30 mg SUBCUT DAILY Insulin NPH/Insulin Reg,Human [HumuLIN 70-30] Med 02/14/20 09:00 Active 20 units SUBCUT BIDAC Ketorolac [Toradol] Med 02/13/20 19:00 Active 30 mg IVPUSH Q8H Morphine Med 02/13/20 18:13 Active 1 mg IVPUSH Q1H PRN Nicotine [Habitrol] Med 02/13/20 19:34 Active 21 mg TRDERM DAILY PRN Nozin [ Nasal Lead Technical Architect] Med 02/13/20 21:00 Active 1 applic NASBOTH BID Ondansetron [Zofran] Med 02/13/20 18:13 Active 4 mg IVPUSH Q4H PRN Patient's Own Medication [Ptom] Med 02/13/20 21:00 Active 0 each PO BEDTIME Pneumococcal Polyvalent-23 Vac [Pneumovax 23] Med 02/15/20 10:00 Once 0.5 ml IM .ONCE ONE Sodium Chloride 0.9% [Normal Saline] 1,000 ml Med 02/13/20 18:15 Active IV ASDIRECTED ceFAZolin [Ancef] 1 gm Med 02/14/20 09:00 Active Premix Bag 1 bag IV Q8H Antiembolic Hose [OM.PC] Routine Oth 02/13/20 18:14 Ordered DVT/VTE Prophylaxis Reflex [OM.PC] Routine Oth 02/13/20 18:14 Ordered Ice Therapy [OM.PC] Per Unit Routine Oth 02/13/20 18:14 Ordered Medication Continuation Instructions [OM.PC] Per Unit Oth 02/13/20 18:14 Ordered Routine Oral Care [OM.PC] Routine Oth 02/13/20 18:14 Ordered Sequential Compression Device [OM.PC] Routine Oth 02/13/20 18:14 Ordered Medication Orders Acetaminophen (Tylenol) 650 mg PO Q4H PRN PRN Reason: Pain/Fever Hydrocodone Bitart/Acetaminophen ([place] 325-5 Mg) 1 tab PO Q6H PRN PRN Reason: Pain Albuterol (Proventil Neb Soln) 2.5 mg NEB Q4H PRN PRN Reason: Shortness Of Breath/wheezing Atenolol (Tenormin) 25 mg PO BEDTIME [facility] Last Admin: 02/13/20 21:25 Dose: 25 mg Documented by: Admin: 02/12/20 20:36 Dose: 25 mg Documented by: USMAN Bandage/Support Products ( Nasal Lead Technical Architect) 1 applic NASBOTH BID [facility] Last Admin: 02/14/20 14:49 Dose: 1 applic Documented by: Admin: 02/13/20 21:29 Dose: Not Given Documented by: BELLE Clonazepam (Klonopin) 2 mg PO BEDTIME [facility] Last Admin: 02/13/20 21:24 Dose: 2 mg Documented by: Admin: 02/12/20 20:36 Dose: 2 mg Documented by: USMAN Docusate Sodium (Colace) 100 mg PO BID [facility] Last Admin: 02/14/20 08:13 Dose: 100 mg Documented by: Admin: 02/13/20 21:24 Dose: 100 mg Documented by: BELLE Enoxaparin Sodium (Lovenox) 30 mg SUBCUT DAILY [facility] Last Admin: 02/14/20 08:13 Dose: 30 mg Documented by: BONNIE Gabapentin (Neurontin) 1,600 mg PO TID [facility] Last Admin: 02/14/20 14:49 Dose: 1,600 mg Documented by: Admin: 02/14/20 08:13 Dose: 1,600 mg Documented by: Admin: 02/13/20 21:24 Dose: 1,600 mg Documented by: Admin: 02/13/20 14:01 Dose: 1,600 mg Documented by: Admin: 02/13/20 08:03 Dose: 1,600 mg Documented by: Admin: 02/12/20 20:35 Dose: 1,600 mg Documented by: USMAN Hydromorphone HCl (Dilaudid) 1 mg IVPUSH Q2H PRN PRN Reason: Pain (severe 7-10) Last Admin: 02/14/20 11:45 Dose: 1 mg Documented by: Admin: 02/14/20 07:26 Dose: 1 mg Documented by: Admin: 02/12/20 22:33 Dose: 1 mg Documented by: USMAN Sodium Chloride (Normal Saline) 1,000 mls @ 125 mls/hr IV ASDIRECTED [facility] Last Admin: 02/14/20 11:31 Dose: 125 mls/hr Documented by: Infusion: 02/14/20 11:08 Dose: 125 mls/hr Documented by: Admin: 02/14/20 03:08 Dose: 125 mls/hr Documented by: Infusion: 02/14/20 02:56 Dose: 125 mls/hr Documented by: Admin: 02/13/20 18:56 Dose: 125 mls/hr Documented by: BONNIE Cefazolin Sodium/Dextrose 1 gm (/ Premix) 50 mls @ 200 mls/hr IV Q8H [facility] Stop: 02/14/20 17:14 Last Admin: 02/14/20 08:46 Dose: 200 mls/hr Documented by: BONNIE Insulin Human Isoph/Insulin Regular (Humulin 70-30) 20 units SUBCUT BIDAC [facility] Last Admin: 02/14/20 08:52 Dose: 20 units Documented by: BONNIE Cosigned by: RAFAEL Insulin Human Lispro (Humalog) 0 unit SUBCUT QIDACANDBED [facility]; Protocol Last Admin: 02/14/20 11:50 Dose: 6 units Documented by: BONNIE Cosigned by: ANITA Admin: 02/14/20 08:11 Dose: 6 units Documented by: BONNIE Cosigned by: ANITA Admin: 02/13/20 21:22 Dose: 6 units Documented by: BELLE Cosigned by: KAREN Admin: 02/13/20 18:58 Dose: Not Given Documented by: Admin: 02/13/20 11:19 Dose: 6 units Documented by: AHSAN Cosigned by: LEVI Admin: 02/13/20 07:52 Dose: 10 units Documented by: AHSAN Cosigned by: LEXIS Admin: 02/12/20 20:40 Dose: 6 units Documented by: USMAN Cosigned by: MARBIN Admin: 02/12/20 18:19 Dose: 10 units Documented by: JETHRO Cosigned by: AHSAN Ketorolac Tromethamine (Toradol) 30 mg IVPUSH Q8H [facility] Stop: 02/15/20 11:01 Last Admin: 02/14/20 11:42 Dose: 30 mg Documented by: Admin: 02/14/20 03:03 Dose: 30 mg Documented by: Admin: 02/13/20 19:41 Dose: 30 mg Documented by: BELLE Lorazepam (Ativan) 0.5 mg IVPUSH Q4H PRN PRN Reason: Nausea/Vomiting Magnesium Hydroxide (Milk Of Magnesia) 30 ml PO Q12H PRN PRN Reason: Constipation Morphine Sulfate (Morphine) 1 mg IVPUSH Q1H PRN PRN Reason: Breakthrough Pain Nicotine (Habitrol) 21 mg TRDERM DAILY PRN PRN Reason: nicotine craving Last Admin: 02/13/20 19:49 Dose: 21 mg Documented by: BELLE Ondansetron HCl (Zofran Odt) 4 mg PO Q6H PRN PRN Reason: Nausea able to take PO Ondansetron HCl (Zofran) 4 mg IVPUSH Q4H PRN PRN Reason: Nausea/Vomiting Oxycodone HCl (Oxycodone) 20 mg PO Q8H [facility] Last Admin: 02/14/20 14:49 Dose: 20 mg Documented by: Admin: 02/14/20 05:33 Dose: 20 mg Documented by: Admin: 02/13/20 21:25 Dose: 20 mg Documented by: Admin: 02/13/20 14:00 Dose: 20 mg Documented by: Admin: 02/13/20 05:07 Dose: 20 mg Documented by: Admin: 02/12/20 22:30 Dose: Not Given Documented by: USMAN Oxycodone HCl (Oxycodone) 20 mg PO Q4H PRN PRN Reason: Pain Last Admin: 02/12/20 20:36 Dose: 20 mg Documented by: USMAN Oxycodone/Acetaminophen (Percocet 325-5 Mg) 1 - 2 tab PO Q6H PRN PRN Reason: Pain Aripiprazole 2mg (Ptom) 0 each PO BEDTIME [facility] Last Admin: 02/13/20 21:24 Dose: 1 each Documented by: BELLE Pneumococcal Polyvalent Vaccine (Pneumovax 23) 0.5 ml IM .ONCE ONE Stop: 02/15/20 10:01 Prazosin HCl (Minpress) 1 mg PO DAILY [facility] Last Admin: 02/14/20 08:14 Dose: 1 mg Documented by: Admin: 02/13/20 08:02 Dose: 1 mg Documented by: AHSAN Senna/Docusate Sodium (Senna Plus) 1 tab PO BID PRN PRN Reason: Constipation Sertraline HCl (Zoloft) 200 mg PO DAILY [facility] Last Admin: 02/14/20 08:13 Dose: 200 mg Documented by: Admin: 02/13/20 08:03 Dose: 200 mg Documented by: AHSAN - Assessment Assessment (Free Text/Narrative):: Assessment: Patient is a 54 y/o male, POD#1, s/p right hip ORIF with cannulated screws. Patient tolerated surgery well with no complications. Pain is well managed at this time. Patient ambulated with FWW with physical therapy today. Patient's past medical history is significant for insulin-dependent diabetic, of which he is non-compliant. Tolerating diet at this time without concerns of nausea or emesis. Plan: * Education regarding diabetes management and wound healing provided to patient by nursing staff * Hunt to be discontinued * Dressing change will be completed tomorrow by orthopedic provider * Continue physical therapy sessions while in the hospital * Anticipate discharge within the next 1-2 days, disposition to home with home health or retirement facility. * Anticipate conversation tomorrow with and patient to decide which option will help patient succeed at discharge.
--- NOTE | 2020-02-14 16:33 | PCM.PN ---
- General Info Date of Service: 02/14/20 Subjective Update: Mr. Poole has remained stable following surgical repair of his hip fracture. Vital signs have been good and he has remained afebrile. Glucose levels tend to run elevated but he prefers it this way and likes to keep his glucose over 200. He understands that this places him at increased risk for infection and other complications. Functional Status: Reports: Tolerating Diet - Review of Systems General: Reports: No Symptoms HEENT: Reports: No Symptoms Pulmonary: Reports: No Symptoms Cardiovascular: Reports: No Symptoms Gastrointestinal: Reports: No Symptoms Musculoskeletal: Reports: Leg Pain (Hip pain) - Patient Data Vitals - Most Recent: Last Vital Signs Temp 97.7 F 02/14/20 15:18 Pulse 66 02/14/20 15:18 Resp 16 02/14/20 15:18 BP 111/63 02/14/20 15:18 Pulse Ox 95 02/14/20 15:18 Weight - Most Recent: 187 lb 0.008 oz I&O - Last 24 Hours: Intake & Output 02/14/20 02/14/20 02/14/20 06:59 14:59 22:59 Intake Total 2635 300 Output Total 1600 600 Balance 1035 -300 Lab Results Last 24 Hours: Laboratory Results - last 24 hr 02/13/20 02/14/20 02/14/20 Range/Units 21:10 07:30 11:30 POC Glucose 292 H 297 H 270 H (74-106) MG/DL Med Orders - Current: Current Medications Acetaminophen (Tylenol) 650 mg PO Q4H PRN PRN Reason: Pain/Fever Hydrocodone Bitart/Acetaminophen ([place] 325-5 Mg) 1 tab PO Q6H PRN PRN Reason: Pain Albuterol (Proventil Neb Soln) 2.5 mg NEB Q4H PRN PRN Reason: Shortness Of Breath/wheezing Atenolol (Tenormin) 25 mg PO BEDTIME [facility] Last Admin: 02/13/20 21:25 Dose: 25 mg Documented by: Bandage/Support Products ( Nasal Theater Education Teacher) 1 applic NASBOTH BID [facility] Last Admin: 02/14/20 14:49 Dose: 1 applic Documented by: Clonazepam (Klonopin) 2 mg PO BEDTIME [facility] Last Admin: 02/13/20 21:24 Dose: 2 mg Documented by: Docusate Sodium (Colace) 100 mg PO BID [facility] Last Admin: 02/14/20 08:13 Dose: 100 mg Documented by: Enoxaparin Sodium (Lovenox) 30 mg SUBCUT DAILY [facility] Last Admin: 02/14/20 08:13 Dose: 30 mg Documented by: Gabapentin (Neurontin) 1,600 mg PO TID [facility] Last Admin: 02/14/20 14:49 Dose: 1,600 mg Documented by: Hydromorphone HCl (Dilaudid) 1 mg IVPUSH Q2H PRN PRN Reason: Pain (severe 7-10) Last Admin: 02/14/20 11:45 Dose: 1 mg Documented by: Sodium Chloride (Normal Saline) 1,000 mls @ 125 mls/hr IV ASDIRECTED [facility] Last Admin: 02/14/20 11:31 Dose: 125 mls/hr Documented by: Cefazolin Sodium/Dextrose 1 gm (/ Premix) 50 mls @ 200 mls/hr IV Q8H [facility] Stop: 02/14/20 17:14 Last Admin: 02/14/20 08:46 Dose: 200 mls/hr Documented by: Insulin Human Isoph/Insulin Regular (Humulin 70-30) 20 units SUBCUT BIDAC [facility] Last Admin: 02/14/20 08:52 Dose: 20 units Documented by: Insulin Human Lispro (Humalog) 0 unit SUBCUT QIDACANDBED [facility]; Protocol Last Admin: 02/14/20 11:50 Dose: 6 units Documented by: Ketorolac Tromethamine (Toradol) 30 mg IVPUSH Q8H [facility] Stop: 02/15/20 11:01 Last Admin: 02/14/20 11:42 Dose: 30 mg Documented by: Lorazepam (Ativan) 0.5 mg IVPUSH Q4H PRN PRN Reason: Nausea/Vomiting Magnesium Hydroxide (Milk Of Magnesia) 30 ml PO Q12H PRN PRN Reason: Constipation Morphine Sulfate (Morphine) 1 mg IVPUSH Q1H PRN PRN Reason: Breakthrough Pain Nicotine (Habitrol) 21 mg TRDERM DAILY PRN PRN Reason: nicotine craving Last Admin: 02/13/20 19:49 Dose: 21 mg Documented by: Ondansetron HCl (Zofran Odt) 4 mg PO Q6H PRN PRN Reason: Nausea able to take PO Ondansetron HCl (Zofran) 4 mg IVPUSH Q4H PRN PRN Reason: Nausea/Vomiting Oxycodone HCl (Oxycodone) 20 mg PO Q8H [facility] Last Admin: 02/14/20 14:49 Dose: 20 mg Documented by: Oxycodone HCl (Oxycodone) 20 mg PO Q4H PRN PRN Reason: Pain Last Admin: 02/12/20 20:36 Dose: 20 mg Documented by: Oxycodone/Acetaminophen (Percocet 325-5 Mg) 1 - 2 tab PO Q6H PRN PRN Reason: Pain Aripiprazole 2mg (Ptom) 0 each PO BEDTIME [facility] Last Admin: 02/13/20 21:24 Dose: 1 each Documented by: Pneumococcal Polyvalent Vaccine (Pneumovax 23) 0.5 ml IM .ONCE ONE Stop: 02/15/20 10:01 Prazosin HCl (Minpress) 1 mg PO DAILY [facility] Last Admin: 02/14/20 08:14 Dose: 1 mg Documented by: Senna/Docusate Sodium (Senna Plus) 1 tab PO BID PRN PRN Reason: Constipation Sertraline HCl (Zoloft) 200 mg PO DAILY [facility] Last Admin: 02/14/20 08:13 Dose: 200 mg Documented by: Discontinued Medications Acetaminophen (Tylenol) 650 mg PO Q4H PRN PRN Reason: Pain (Mild 1-3)/fever Last Admin: 02/12/20 20:36 Dose: 650 mg Documented by: Bupivacaine HCl/Epinephrine Bitart ([place] 0.5%/Epinephrine 1:200,000) Confirm Administered Dose 50 ml .ROUTE .STK-MED ONE Stop: 02/13/20 11:44 Fentanyl (Sublimaze) Confirm Administered Dose 100 mcg .ROUTE .STK-MED ONE Stop: 02/13/20 13:04 Hydromorphone HCl (Dilaudid) 0.5 mg IVPUSH ONETIME ONE Stop: 02/12/20 15:43 Last Admin: 02/12/20 15:47 Dose: 0.5 mg Documented by: Sodium Chloride (Normal Saline) 1,000 mls @ 75 mls/hr IV ASDIRECTED [facility] Last Admin: 02/13/20 11:22 Dose: 75 mls/hr Documented by: Cefazolin Sodium 2 gm/ (Dextrose/Water) 100 mls @ 200 mls/hr IV ONETIME ONE Stop: 02/13/20 17:59 Last Admin: 02/13/20 16:54 Dose: 200 mls/hr Documented by: Cefazolin Sodium 1 gm/ Sodium (Chloride) 50 mls @ 200 mls/hr IV Q8H [facility] Stop: 02/14/20 17:14 Last Admin: 02/14/20 01:05 Dose: 200 mls/hr Documented by: Insulin Human Isoph/Insulin Regular (Humulin 70-30) 20 units SUBCUT BIDAC [facility] Insulin Human Regular (Humulin R) 20 unit SUBCUT ONETIME ONE Stop: 02/12/20 16:15 Last Admin: 02/12/20 16:32 Dose: 20 unit Documented by: Midazolam HCl (Versed 1 Mg/Ml) Confirm Administered Dose 2 mg .ROUTE .STK-MED ONE Stop: 02/13/20 13:04 Nicotine (Habitrol) 14 mg TRDERM DAILY PRN PRN Reason: nicotine craving Last Admin: 02/13/20 19:50 Dose: 14 mg Documented by: Ondansetron HCl (Zofran) 4 mg IV Q6H PRN PRN Reason: Nausea/Vomiting Propofol (Diprivan 20 Ml) Confirm Administered Dose 200 mg .ROUTE .STK-MED ONE Stop: 02/13/20 13:04 Propofol (Diprivan 20 Ml) Confirm Administered Dose 200 mg .ROUTE .STK-MED ONE Stop: 02/13/20 17:35 - Exam Quality Assessment: DVT Prophylaxis General: Alert, Oriented, Cooperative, Moderate Distress Lungs: Clear to Auscultation, Normal Respiratory Effort Cardiovascular: Regular Rate, Regular Rhythm, No Murmurs GI/Abdominal Exam: Soft, Non-Tender, No Organomegaly, No Distention Sepsis Event Note - Evaluation Sepsis Screening Result: No Definite Risk - Focused Exam Vital Signs: Vital Signs Temp Temp Pulse Resp BP BP Pulse Ox 02/14/20 15:18 97.7 F 66 16 111/63 95 02/14/20 11:34 97.7 F 73 16 110/56 L 95 02/14/20 08:14 149/80 H 02/14/20 07:17 97.7 F 79 16 149/80 H 92 L - Problem List Review Problem List Initiated/Reviewed/Updated: Yes - My Orders Last 24 Hours: My Active Orders 02/14/20 Breakfast Consistent Carbohydrate Diet [DIET] 02/14/20 09:00 Insulin NPH/Insulin Reg,Human [HumuLIN 70-30] 20 units SUBCUT BIDAC - Plan Plan:: ASSESSMENT AND PLAN - Impacted subcapsular fracture of the right hip-status post surgical repair -Postoperative care per Dr. Hernández Insulin-dependent diabetes mellitus, poorly controlled-patient reports that his goal is to keep his blood sugars from dropping below 200 since he does not feel good if they are below that level. 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 -Continue outpatient management including high-dose oxycodone Tobacco dependence-patient uses chewing tobacco regularly. -Nicotine patch Maintenance issues - - DVT prophylaxis -mechanical - GI prophylaxis -not indicated - Nutrition -n.p.o. after midnight - Hunt catheter -anticipate 1 will be placed at the time of surgery tomorrow CODE STATUS -full code Admission justification -this patient will be admitted for inpatient services and is medically appropriate meeting medical necessity for inpatient admission as outlined in my documentation. I reasonably expect the patient will require inpatient services that span a period time over 2 midnights. I reasonably expect this patient to be discharged or transferred within 96 hours [facility] Disposition -I would anticipate discharge home versus possibly to subacute rehab after the hospital stay Primary care physician - Dr Sylvester
[2020-02-14] MEDS: oxyCODONE 5 MG Tab PO PRN (19:34)
[2020-02-14] MEDS: ARIPIPRAZOLE 2 MG PO SCH ×2 (19:41→20:56)
[2020-02-14] MEDS: Atenolol 25 MG Tab PO SCH ×2 (19:43→20:56)
[2020-02-14] MEDS: ClonazePAM 1 MG Tab PO SCH (21:24)
[2020-02-15] MEDS: Sodium Chloride 0.9% 1,000 ML IV SCH ×2 (03:37→12:07)
[2020-02-15] MEDS: Ketorolac 30 MG/ML SDV IVPUSH SCH ×2 (03:39→12:00)
[2020-02-15] MEDS: oxyCODONE 5 MG Tab PO SCH ×3 (06:03→21:09)
[2020-02-15] MEDS: Sertraline 50 MG Tab PO SCH (08:15)
[2020-02-15] MEDS: Prazosin 1 MG Cap PO SCH (08:16)
[2020-02-15] MEDS: Enoxaparin 30 MG/0.3 ML Syringe SUBCUT SCH (08:16)
[2020-02-15] MEDS: Docusate Sodium 100 MG Cap PO SCH ×3 (08:16→21:10)
[2020-02-15] MEDS: Gabapentin 400 MG Cap PO SCH ×3 (08:16→21:10)
[2020-02-15] MEDS: Insulin Lispro 100 Unit/ML 3 ML KwikPen SUBCUT SCH ×4 (08:18→21:13)
[2020-02-15] MEDS: Insulin NPH/Insulin Regular,Human 70-30 100 Units/ML 10 ML Vial SUBCUT SCH ×2 (08:20→17:30)
[2020-02-15] MEDS: Nozin Nasal Sanitizer NASBOTH SCH ×2 (08:25→21:11)
[2020-02-15] MEDS ORDERED: Pneumococcal Polyvalent-23 Vaccine 0.5 ML SDV IM ONE (10:00)
--- NOTE | 2020-02-15 13:57 | PCM.PN ---
- General Info Date of Service: 02/15/20 Subjective Update: Mr. Poole's been stable since yesterday and is progressing well with physical therapy. Able to ambulate with use of walker and transfer with minor assistance. Glucose levels remain elevated, patient is insistent about not aggressively treating glucose levels as he does not feel well when they drop below 200. Functional Status: Reports: Tolerating Diet, Ambulating, Urinating - Review of Systems General: Reports: No Symptoms Pulmonary: Reports: No Symptoms Cardiovascular: Reports: No Symptoms Gastrointestinal: Reports: No Symptoms Musculoskeletal: Reports: Joint Pain (Hip pain) - Patient Data Vitals - Most Recent: Last Vital Signs Temp 97.9 F 02/15/20 10:22 Pulse 74 02/15/20 10:22 Resp 16 02/15/20 10:22 BP 128/68 02/15/20 10:22 Pulse Ox 95 02/15/20 10:22 Weight - Most Recent: 187 lb 0.008 oz I&O - Last 24 Hours: Intake & Output 02/14/20 02/15/20 02/15/20 22:59 06:59 14:59 Intake Total 2500 4016 400 Output Total 1250 1300 800 Balance 1250 2716 -400 Lab Results Last 24 Hours: Laboratory Results - last 24 hr 02/14/20 02/14/20 02/15/20 Range/Units 16:30 20:58 07:30 POC Glucose 294 H 307 H 197 H (74-106) MG/DL 02/15/20 Range/Units 11:30 POC Glucose 268 H (74-106) MG/DL Med Orders - Current: Current Medications Acetaminophen (Tylenol) 650 mg PO Q4H PRN PRN Reason: Pain/Fever Hydrocodone Bitart/Acetaminophen ([place] 325-5 Mg) 1 tab PO Q6H PRN PRN Reason: Pain Albuterol (Proventil Neb Soln) 2.5 mg NEB Q4H PRN PRN Reason: Shortness Of Breath/wheezing Atenolol (Tenormin) 25 mg PO BEDTIME [facility] Last Admin: 02/14/20 20:56 Dose: Not Given Documented by: Bandage/Support Products ( Nasal Grader Operator) 1 applic NASBOTH BID [facility] Last Admin: 02/15/20 08:25 Dose: 1 applic Documented by: Clonazepam (Klonopin) 2 mg PO BEDTIME [facility] Last Admin: 02/14/20 21:24 Dose: 2 mg Documented by: Docusate Sodium (Colace) 100 mg PO BID [facility] Last Admin: 02/15/20 08:18 Dose: Not Given Documented by: Enoxaparin Sodium (Lovenox) 30 mg SUBCUT DAILY [facility] Last Admin: 02/15/20 08:16 Dose: 30 mg Documented by: Gabapentin (Neurontin) 1,600 mg PO TID [facility] Last Admin: 02/15/20 08:16 Dose: 1,600 mg Documented by: Hydromorphone HCl (Dilaudid) 1 mg IVPUSH Q2H PRN PRN Reason: Pain (severe 7-10) Last Admin: 02/14/20 11:45 Dose: 1 mg Documented by: Insulin Human Isoph/Insulin Regular (Humulin 70-30) [facility] Last Admin: 02/15/20 08:20 Dose: Not Given Documented by: Insulin Human Lispro (Humalog) 0 unit SUBCUT QIDACANDBED [facility]; Protocol Last Admin: 02/15/20 11:56 Dose: Not Given Documented by: Lorazepam (Ativan) 0.5 mg IVPUSH Q4H PRN PRN Reason: Nausea/Vomiting Magnesium Hydroxide (Milk Of Magnesia) 30 ml PO Q12H PRN PRN Reason: Constipation Morphine Sulfate (Morphine) 1 mg IVPUSH Q1H PRN PRN Reason: Breakthrough Pain Nicotine (Habitrol) 21 mg TRDERM DAILY PRN PRN Reason: nicotine craving Last Admin: 02/13/20 19:49 Dose: 21 mg Documented by: Ondansetron HCl (Zofran Odt) 4 mg PO Q6H PRN PRN Reason: Nausea able to take PO Ondansetron HCl (Zofran) 4 mg IVPUSH Q4H PRN PRN Reason: Nausea/Vomiting Oxycodone HCl (Oxycodone) 20 mg PO Q8H [facility] Last Admin: 02/15/20 06:03 Dose: 20 mg Documented by: Oxycodone HCl (Oxycodone) 20 mg PO Q4H PRN PRN Reason: Pain Last Admin: 02/14/20 19:34 Dose: 20 mg Documented by: Oxycodone/Acetaminophen (Percocet 325-5 Mg) 1 - 2 tab PO Q6H PRN PRN Reason: Pain Aripiprazole 2mg (Ptom) 0 each PO BEDTIME [facility] Last Admin: 02/14/20 20:56 Dose: Not Given Documented by: Prazosin HCl (Minpress) 1 mg PO DAILY [facility] Last Admin: 02/15/20 08:16 Dose: 1 mg Documented by: Senna/Docusate Sodium (Senna Plus) 1 tab PO BID PRN PRN Reason: Constipation Sertraline HCl (Zoloft) 200 mg PO DAILY [facility] Last Admin: 02/15/20 08:15 Dose: 200 mg Documented by: Discontinued Medications Acetaminophen (Tylenol) 650 mg PO Q4H PRN PRN Reason: Pain (Mild 1-3)/fever Last Admin: 02/12/20 20:36 Dose: 650 mg Documented by: Bupivacaine HCl/Epinephrine Bitart ([place] 0.5%/Epinephrine 1:200,000) Confirm Administered Dose 50 ml .ROUTE .STK-MED ONE Stop: 02/13/20 11:44 Fentanyl (Sublimaze) Confirm Administered Dose 100 mcg .ROUTE .STK-MED ONE Stop: 02/13/20 13:04 Hydromorphone HCl (Dilaudid) 0.5 mg IVPUSH ONETIME ONE Stop: 02/12/20 15:43 Last Admin: 02/12/20 15:47 Dose: 0.5 mg Documented by: Sodium Chloride (Normal Saline) 1,000 mls @ 75 [facility] Admin: 02/13/20 11:22 Dose: 75 mls/hr Documented by: Cefazolin Sodium 2 gm/ (Dextrose/Water) 100 mls @ 200 mls/hr IV ONETIME ONE Stop: 02/13/20 17:59 Last Admin: 02/13/20 16:54 Dose: 200 mls/hr Documented by: Sodium Chloride (Normal Saline) 1,000 mls @ 125 mls/hr IV ASDIRECTED [facility] Last Admin: 02/15/20 12:07 Dose: 125 mls/hr Documented by: Cefazolin Sodium 1 gm/ Sodium (Chloride) 50 mls @ 200 mls/hr IV Q8H [facility] Stop: 02/14/20 17:14 Last Admin: 02/14/20 01:05 Dose: 200 mls/hr Documented by: Cefazolin Sodium/Dextrose 1 gm (/ Premix) 50 mls @ 200 mls/hr IV Q8H [facility] Stop: 02/14/20 17:14 Last Admin: 02/14/20 16:49 Dose: 200 mls/hr Documented by: Insulin Human Isoph/Insulin Regular (Humulin 70-30) 20 units SUBCUT BIDAC [facility] Insulin Human Regular (Humulin R) 20 unit SUBCUT ONETIME ONE Stop: 02/12/20 16:15 Last Admin: 02/12/20 16:32 Dose: 20 unit Documented by: Ketorolac Tromethamine (Toradol) 30 mg IVPUSH Q8H [facility] Stop: 02/15/20 11:01 Last Admin: 02/15/20 12:00 Dose: 30 mg Documented by: Midazolam HCl (Versed 1 Mg/Ml) Confirm Administered Dose 2 mg .ROUTE .STK-MED ONE Stop: 02/13/20 13:04 Nicotine (Habitrol) 14 mg TRDERM DAILY PRN PRN Reason: nicotine craving Last Admin: 02/13/20 19:50 Dose: 14 mg Documented by: Ondansetron HCl (Zofran) 4 mg IV Q6H PRN PRN Reason: Nausea/Vomiting Pneumococcal Polyvalent Vaccine (Pneumovax 23) 0.5 ml IM .ONCE ONE Stop: 02/15/20 10:01 Last Admin: 02/15/20 11:57 Dose: Not Given Documented by: Propofol (Diprivan 20 Ml) Confirm Administered Dose 200 mg .ROUTE .STK-MED ONE Stop: 02/13/20 13:04 Propofol (Diprivan 20 Ml) Confirm Administered Dose 200 mg .ROUTE .STK-MED ONE Stop: 02/13/20 17:35 - Exam Quality Assessment: DVT Prophylaxis General: Alert, Oriented, Cooperative, Mild Distress Lungs: Clear to Auscultation, Normal Respiratory Effort Cardiovascular: Regular Rate, Regular Rhythm, No Murmurs GI/Abdominal Exam: Soft, Non-Tender, No Organomegaly, No Distention Sepsis Event Note - Evaluation Sepsis Screening Result: No Definite Risk - Focused Exam Vital Signs: Vital Signs Temp Pulse Resp BP BP Pulse Ox 02/15/20 10:22 97.9 F 74 16 128/68 95 02/15/20 08:16 134/72 01/06/21 07:09 97.9 F 66 16 134/72 95 02/15/20 03:00 97.9 F 72 18 118/63 93 L - Problem List Review Problem List Initiated/Reviewed/Updated: Yes - My Orders Last 24 Hours: My Active Orders 02/15/20 13:54 Convert IV to Saline Lock [OM.PC] Routine - Plan Plan:: ASSESSMENT AND PLAN - Impacted subcapsular fracture of the right hip-status post surgical repair -Postoperative care per Dr. Hernández Insulin-dependent diabetes mellitus, poorly controlled-patient reports that his goal is to keep his blood sugars from dropping below 200 since he does not feel good if they are below that level. 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 -Continue outpatient management including high-dose oxycodone Tobacco dependence-patient uses chewing tobacco regularly. -Nicotine patch Maintenance issues - - DVT prophylaxis -mechanical - GI prophylaxis -not indicated - Nutrition -n.p.o. after midnight - Hunt catheter -anticipate 1 will be placed at the time of surgery tomorrow CODE STATUS -full code Admission justification -this patient will be admitted for inpatient services and is medically appropriate meeting medical necessity for inpatient admission as outlined in my documentation. I reasonably expect the patient will require inpatient services that span a period time over 2 midnights. I reasonably expect this patient to be discharged or transferred within 96 hours [facility]. Disposition -I would anticipate discharge home versus possibly to subacute rehab after the hospital stay Primary care physician - Dr Sylvester
--- NOTE | 2020-02-15 15:47 | PCM.SURGPN ---
- General Info Date of Service: 02/15/20 Date of Surgery/Procedure: 02/13/20 POD#: 2 Post-Op Diagnosis: Subcapital right hip fx, S/P percutaneous screw fixation Functional Status: Reports: Pain Controlled, Tolerating Diet, Ambulating - Review of Systems General: Reports: No Symptoms Musculoskeletal: Reports: Other (Hip pain) Neurological: Reports: No Symptoms Psychiatric: Reports: No Symptoms - Patient Data Vitals - Most Recent: Last Vital Signs Temp 36.6 C 02/15/20 10:22 Pulse 74 02/15/20 10:22 Resp 16 02/15/20 10:22 BP 128/68 02/15/20 10:22 Pulse Ox 95 02/15/20 10:22 Weight - Most Recent: 84.822 kg I&O - Last 24 Hours: Intake & Output 02/15/20 02/15/20 02/15/20 06:59 14:59 22:59 Intake Total 4016 1080 Output Total 1300 1600 Balance 2716 -520 Lab Results Last 24 Hrs: Laboratory Results - last 24 hr 02/14/20 02/14/20 02/15/20 Range/Units 16:30 20:58 07:30 POC Glucose 294 H 307 H 197 H (74-106) MG/DL 02/15/20 Range/Units 11:30 POC Glucose 268 H (74-106) MG/DL Med Orders - Current: Current Medications Acetaminophen (Tylenol) 650 mg PO Q4H PRN PRN Reason: Pain/Fever Hydrocodone Bitart/Acetaminophen (Warren 325-5 Mg) 1 tab PO Q6H PRN PRN Reason: Pain Albuterol (Proventil Neb Soln) 2.5 mg NEB Q4H PRN PRN Reason: Shortness Of Breath/wheezing Atenolol (Tenormin) 25 mg PO BEDTIME [facility] Last Admin: 02/14/20 20:56 Dose: Not Given Documented by: Bandage/Support Products ( Nasal Activities Counselor) 1 applic NASBOTH BID [facility] Last Admin: 02/15/20 08:25 Dose: 1 applic Documented by: Clonazepam (Klonopin) 2 mg PO BEDTIME [facility] Last Admin: 02/14/20 21:24 Dose: 2 mg Documented by: Docusate Sodium (Colace) 100 mg PO BID [facility] Last Admin: 02/15/20 08:18 Dose: Not Given Documented by: Enoxaparin Sodium (Lovenox) 30 mg SUBCUT DAILY [facility] Last Admin: 02/15/20 08:16 Dose: 30 mg Documented by: Gabapentin (Neurontin) 1,600 mg PO TID [facility] Last Admin: 02/15/20 14:25 Dose: 1,600 mg Documented by: Hydromorphone HCl (Dilaudid) 1 mg IVPUSH Q2H PRN PRN Reason: Pain (severe 7-10) Last Admin: 02/14/20 11:45 Dose: 1 mg Documented by: Insulin Human Isoph/Insulin Regular (Humulin 70-30) 20 units SUBCUT BIDAC [facility] Last Admin: 02/15/20 08:20 Dose: Not Given Documented by: Insulin Human Lispro (Humalog) 0 unit SUBCUT QIDACANDBED [facility]; Protocol Last Admin: 02/15/20 11:56 Dose: Not Given Documented by: Lorazepam (Ativan) 0.5 mg IVPUSH Q4H PRN PRN Reason: Nausea/Vomiting Magnesium Hydroxide (Milk Of Magnesia) 30 ml PO Q12H PRN PRN Reason: Constipation Morphine Sulfate (Morphine) 1 mg IVPUSH Q1H PRN PRN Reason: Breakthrough Pain Nicotine (Habitrol) 21 mg TRDERM DAILY PRN PRN Reason: nicotine craving Last Admin: 02/13/20 19:49 Dose: 21 mg Documented by: Ondansetron HCl (Zofran Odt) 4 mg PO Q6H PRN PRN Reason: Nausea able to take PO Ondansetron HCl (Zofran) 4 mg IVPUSH Q4H PRN PRN Reason: Nausea/Vomiting Oxycodone HCl (Oxycodone) 20 mg PO Q8H [facility] Last Admin: 02/15/20 14:26 Dose: 20 mg Documented by: Oxycodone HCl (Oxycodone) 20 mg PO Q4H PRN PRN Reason: Pain Last Admin: 02/14/20 19:34 Dose: 20 mg Documented by: Oxycodone/Acetaminophen (Percocet 325-5 Mg) 1 - 2 tab PO Q6H PRN PRN Reason: Pain Aripiprazole 2mg (Ptom) 0 each PO BEDTIME [facility] Last Admin: 02/14/20 20:56 Dose: Not Given Documented by: Prazosin HCl (Minpress) 1 mg PO DAILY [facility] Last Admin: 02/15/20 08:16 Dose: 1 mg Documented by: Senna/Docusate Sodium (Senna Plus) 1 tab PO BID PRN PRN Reason: Constipation Sertraline HCl (Zoloft) 200 mg PO DAILY [facility] Last Admin: 02/15/20 08:15 Dose: 200 mg Documented by: Discontinued Medications Acetaminophen (Tylenol) 650 mg PO Q4H PRN PRN Reason: Pain (Mild 1-3)/fever Last Admin: 02/12/20 20:36 Dose: 650 mg Documented by: Bupivacaine HCl/Epinephrine Bitart (Marcaine 0.5%/Epinephrine 1:200,000) Confirm Administered Dose 50 ml .ROUTE .STK-MED ONE Stop: 02/13/20 11:44 Fentanyl (Sublimaze) Confirm Administered Dose 100 mcg .ROUTE .STK-MED ONE Stop: 02/13/20 13:04 Hydromorphone HCl (Dilaudid) 0.5 mg IVPUSH ONETIME ONE Stop: 02/12/20 15:43 Last Admin: 02/12/20 15:47 Dose: 0.5 mg Documented by: Sodium Chloride (Normal Saline) 1,000 mls @ 75 mls/hr IV ASDIRECTED [facility] Last Admin: 02/13/20 11:22 Dose: 75 mls/hr Documented by: Cefazolin Sodium 2 gm/ (Dextrose/Water) 100 mls @ 200 mls/hr IV ONETIME ONE Stop: 02/13/20 17:59 Last Admin: 02/13/20 16:54 Dose: 200 mls/hr Documented by: Sodium Chloride (Normal Saline) 1,000 mls @ 125 mls/hr IV ASDIRECTED [facility] Last Admin: 02/15/20 12:07 Dose: 125 mls/hr Documented by: Cefazolin Sodium 1 gm/ Sodium (Chloride) 50 mls @ 200 mls/hr IV Q8H [facility] Stop: 02/14/20 17:14 Last Admin: 02/14/20 01:05 Dose: 200 mls/hr Documented by: Cefazolin Sodium/Dextrose 1 gm (/ Premix) 50 mls @ 200 mls/hr IV Q8H [facility] Stop: 02/14/20 17:14 Last Admin: 02/14/20 16:49 Dose: 200 mls/hr Documented by: Insulin Human Isoph/Insulin Regular (Humulin 70-30) 20 units SUBCUT BIDAC [facility] Insulin Human Regular (Humulin R) 20 unit SUBCUT ONETIME ONE Stop: 02/12/20 16:15 Last Admin: 02/12/20 16:32 Dose: 20 unit Documented by: Ketorolac Tromethamine (Toradol) 30 mg IVPUSH Q8H [facility] Stop: 02/15/20 11:01 Last Admin: 02/15/20 12:00 Dose: 30 mg Documented by: Midazolam HCl (Versed 1 Mg/Ml) Confirm Administered Dose 2 mg .ROUTE .STK-MED ONE Stop: 02/13/20 13:04 Nicotine (Habitrol) 14 mg TRDERM DAILY PRN PRN Reason: nicotine craving Last Admin: 02/13/20 19:50 Dose: 14 mg Documented by: Ondansetron HCl (Zofran) 4 mg IV Q6H PRN PRN Reason: Nausea/Vomiting Pneumococcal Polyvalent Vaccine (Pneumovax 23) 0.5 ml IM .ONCE ONE Stop: 02/15/20 10:01 Last Admin: 02/15/20 11:57 Dose: Not Given Documented by: Propofol (Diprivan 20 Ml) Confirm Administered Dose 200 mg .ROUTE .STK-MED ONE Stop: 02/13/20 13:04 Propofol (Diprivan 20 Ml) Confirm Administered Dose 200 mg .ROUTE .STK-MED ONE Stop: 02/13/20 17:35 - Exam Wound/Incisions: Dressing Dry and Intact General: Alert, Oriented Extremities: Limited Range of Motion Skin: Warm, Dry Psy/Mental Status: Alert, Normal Affect, Normal Mood Sepsis Event Note - Evaluation Sepsis Screening Result: No Definite Risk - Focused Exam Vital Signs: Vital Signs Temp Pulse Resp BP BP Pulse Ox 02/15/20 10:22 36.6 C 74 16 128/68 95 02/15/20 08:16 134/72 02/15/20 07:09 36.6 C 66 16 134/72 95 - Problem List & Annotations (1) Subcapital fracture of right hip SNOMED Code(s): 883354997, [id number] Code(s): S72.011A - UNSP INTRACAPSULAR FRACTURE OF RIGHT FEMUR, INIT FOR CLOS FX Status: Acute Current Visit: Yes Qualifiers: Encounter type: initial encounter Fracture type: closed Qualified Co de(s): S72.011A - Unspecified intracapsular fracture of right femur, initial encounter for closed fracture - Problem List Review Problem List Initiated/Reviewed/Updated: Yes - My Orders Last 24 Hours: Active Orders 24 hr Category Date Time Status GLUCOSE POC LAB TO COLLECT JPM [POC] QIDACANDBED Lab 02/15/20 16:30 Ordered GLUCOSE POC LAB TO COLLECT JPM [POC] QIDACANDBED Lab 02/15/20 21:00 Ordered GLUCOSE POC LAB TO COLLECT JPM [POC] QIDACANDBED Lab 02/16/20 07:30 Ordered GLUCOSE POC LAB TO COLLECT JPM [POC] QIDACANDBED Lab 02/16/20 11:30 Ordered GLUCOSE POC LAB TO COLLECT JPM [POC] QIDACANDBED Lab 02/16/20 16:30 Ordered GLUCOSE POC LAB TO COLLECT JPM [POC] QIDACANDBED Lab 02/16/20 21:00 Ordered GLUCOSE POC LAB TO COLLECT JPM [POC] QIDACANDBED Lab 02/17/20 07:30 Ordered GLUCOSE POC LAB TO COLLECT JPM [POC] QIDACANDBED Lab 02/17/20 11:30 Ordered GLUCOSE POC LAB TO COLLECT JPM [POC] QIDACANDBED Lab 02/17/20 16:30 Ordered GLUCOSE POC LAB TO COLLECT JPM [POC] QIDACANDBED Lab 02/17/20 21:00 Ordered GLUCOSE POC LAB TO COLLECT JPM [POC] QIDACANDBED Lab 02/18/20 07:30 Ordered Convert IV to Saline Lock [OM.PC] Routine Oth 02/15/20 13:54 Ordered Medication Orders Acetaminophen (Tylenol) 650 mg PO Q4H PRN PRN Reason: Pain/Fever Hydrocodone Bitart/Acetaminophen (Warren 325-5 Mg) 1 tab PO Q6H PRN PRN Reason: Pain Albuterol (Proventil Neb Soln) 2.5 mg NEB Q4H PRN PRN Reason: Shortness Of Breath/wheezing Atenolol (Tenormin) 25 mg PO BEDTIME [facility] Admin: 02/14/20 20:56 Dose: Not Given Documented by: Admin: 02/14/20 19:43 Dose: 25 mg Documented by: Admin: 02/13/20 21:25 Dose: 25 mg Documented by: Admin: 02/12/20 20:36 Dose: 25 mg Documented by: USMAN Bandage/Support Products ( Nasal Activities Counselor) 1 applic NASBOTH BID [facility] Admin: 02/15/20 08:25 Dose: 1 applic Documented by: Admin: 02/14/20 20:55 Dose: Not Given Documented by: Admin: 02/14/20 19:41 Dose: 1 applic Documented by: Admin: 02/14/20 14:49 Dose: 1 applic Documented by: Admin: 02/13/20 21:29 Dose: Not Given Documented by: BELLE Clonazepam (Klonopin) 2 mg PO BEDTIME [facility] Admin: 02/14/20 21:24 Dose: 2 mg Documented by: Admin: 02/13/20 21:24 Dose: 2 mg Documented by: Admin: 02/12/20 20:36 Dose: 2 mg Documented by: USMAN Docusate Sodium (Colace) 100 mg PO BID [facility] Admin: 02/15/20 08:18 Dose: Not Given Documented by: Admin: 02/14/20 20:56 Dose: Not Given Documented by: Admin: 02/14/20 19:42 Dose: 100 mg Documented by: Admin: 02/14/20 08:13 Dose: 100 mg Documented by: Admin: 02/13/20 21:24 Dose: 100 mg Documented by: BELLE Enoxaparin Sodium (Lovenox) 30 mg SUBCUT DAILY [facility] Admin: 02/15/20 08:16 Dose: 30 mg Documented by: Admin: 02/14/20 08:13 Dose: 30 mg Documented by: BONNIE Gabapentin (Neurontin) 1,600 mg PO TID [facility] Admin: 02/15/20 14:25 Dose: 1,600 mg Documented by: Admin: 02/15/20 08:16 Dose: 1,600 mg Documented by: Admin: 02/14/20 20:56 Dose: Not Given Documented by: Admin: 02/14/20 19:42 Dose: 1,600 mg Documented by: Admin: 02/14/20 14:49 Dose: 1,600 mg Documented by: Admin: 02/14/20 08:13 Dose: 1,600 mg Documented by: Admin: 02/13/20 21:24 Dose: 1,600 mg Documented by: Admin: 02/13/20 14:01 Dose: 1,600 mg Documented by: Admin: 02/13/20 08:03 Dose: 1,600 mg Documented by: Admin: 02/12/20 20:35 Dose: 1,600 mg Documented by: USMAN Hydromorphone HCl (Dilaudid) 1 mg IVPUSH Q2H PRN PRN Reason: Pain (severe 7-10) Last Admin: 02/14/20 11:45 Dose: 1 mg Documented by: Admin: 02/14/20 07:26 Dose: 1 mg Documented by: Admin: 02/12/20 22:33 Dose: 1 mg Documented by: USMAN Insulin Human Isoph/Insulin Regular (Humulin 70-30) 20 units SUBCUT BIDAC [facility] Last Admin: 02/15/20 08:20 Dose: Not Given Documented by: Admin: 02/14/20 16:50 Dose: 20 units Documented by: BONNIE Cosigned by: RAFAEL Admin: 02/14/20 08:52 Dose: 20 units Documented by: BONNIE Cosigned by: RAFAEL Insulin Human Lispro (Humalog) 0 unit SUBCUT QIDACANDBED [facility]; Protocol Last Admin: 02/15/20 11:56 Dose: Not Given Documented by: Admin: 02/15/20 08:18 Dose: 2 units Documented by: XIMENA Cosigned by: ARSEN Admin: 02/14/20 21:21 Dose: 8 units Documented by: TAYLOR Cosigned by: ANNA Admin: 02/14/20 16:51 Dose: 6 units Documented by: BONNIE Cosigned by: RAFAEL Admin: 02/14/20 11:50 Dose: 6 units Documented by: BONNIE Cosigned by: ANITA Admin: 02/14/20 08:11 Dose: 6 units Documented by: BONNIE Cosigned by: ANITA Admin: 02/13/20 21:22 Dose: 6 units Documented by: BELLE Cosigned by: KAREN Admin: 02/13/20 18:58 Dose: Not Given Documented by: Admin: 02/13/20 11:19 Dose: 6 units Documented by: AHSAN Cosigned by: LEVI Admin: 02/13/20 07:52 Dose: 10 units Documented by: AHSAN Cosigned by: LEXIS Admin: 02/12/20 20:40 Dose: 6 units Documented by: USMAN Cosigned by: MARBIN Admin: 02/12/20 18:19 Dose: 10 units Documented by: JETHRO Cosigned by: AHSAN Lorazepam (Ativan) 0.5 mg IVPUSH Q4H PRN PRN Reason: Nausea/Vomiting Magnesium Hydroxide (Milk Of Magnesia) 30 ml PO Q12H PRN PRN Reason: Constipation Morphine Sulfate (Morphine) 1 mg IVPUSH Q1H PRN PRN Reason: Breakthrough Pain Nicotine (Habitrol) 21 mg TRDERM DAILY PRN PRN Reason: nicotine craving Last Admin: 02/13/20 19:49 Dose: 21 mg Documented by: BELLE Ondansetron HCl (Zofran Odt) 4 mg PO Q6H PRN PRN Reason: Nausea able to take PO Ondansetron HCl (Zofran) 4 mg IVPUSH Q4H PRN PRN Reason: Nausea/Vomiting Oxycodone HCl (Oxycodone) 20 mg PO Q8H [facility] Darian Admin: 02/15/20 14:26 Dose: 20 mg Documented by: Admin: 02/15/20 06:03 Dose: 20 mg Documented by: Admin: 02/14/20 21:23 Dose: 20 mg Documented by: Admin: 02/14/20 14:49 Dose: 20 mg Documented by: Admin: 02/14/20 05:33 Dose: 20 mg Documented by: Admin: 02/13/20 21:25 Dose: 20 mg Documented by: Admin: 02/13/20 14:00 Dose: 20 mg Documented by: Admin: 02/13/20 05:07 Dose: 20 mg Documented by: Admin: 02/12/20 22:30 Dose: Not Given Documented by: USMAN Oxycodone HCl (Oxycodone) 20 mg PO Q4H PRN PRN Reason: Pain Last Admin: 02/14/20 19:34 Dose: 20 mg Documented by: Admin: 02/12/20 20:36 Dose: 20 mg Documented by: USMAN Oxycodone/Acetaminophen (Percocet 325-5 Mg) 1 - 2 tab PO Q6H PRN PRN Reason: Pain Aripiprazole 2mg (Ptom) 0 each PO BEDTIME [facility] Last Admin: 02/14/20 20:56 Dose: Not Given Documented by: Admin: 02/14/20 19:41 Dose: 1 each Documented by: Admin: 02/13/20 21:24 Dose: 1 each Documented by: BELLE Prazosin HCl (Minpress) 1 mg PO DAILY [facility] Last Admin: 02/15/20 08:16 Dose: 1 mg Documented by: Admin: 02/14/20 08:14 Dose: 1 mg Documented by: Admin: 02/13/20 08:02 Dose: 1 mg Documented by: AHSAN Senna/Docusate Sodium (Senna Plus) 1 tab PO BID PRN PRN Reason: Constipation Sertraline HCl (Zoloft) 200 mg PO DAILY [facility] Last Admin: 02/15/20 08:15 Dose: 200 mg Documented by: Admin: 02/14/20 08:13 Dose: 200 mg Documented by: Admin: 02/13/20 08:03 Dose: 200 mg Documented by: AHSAN - Assessment Assessment (Free Text/Narrative):: Doing fairly well with PT, up with walker and transitions in/out of bed with light assist. Pain controlled. OK from Ortho standpoint for discharge when arrangements made for PT, etc. - Plan Plan (Free Text/Narrative):: Continue PT, WBAT with walker or crutches, Ok to shower, follow up in Ortho clinic in 2 weeks.
[2020-02-15] MEDS: ClonazePAM 1 MG Tab PO SCH (21:09)
[2020-02-15] MEDS: ARIPIPRAZOLE 2 MG PO SCH (21:10)
[2020-02-15] MEDS: Atenolol 25 MG Tab PO SCH (21:11)
[2020-02-16] MEDS: oxyCODONE 5 MG Tab PO SCH ×2 (05:54→14:00)
[2020-02-16 07:48] VITALS: BP 158/80; PULSE 72
[2020-02-16] MEDS: Insulin Lispro 100 Unit/ML 3 ML KwikPen SUBCUT SCH ×2 (08:06→11:44)
[2020-02-16] MEDS: Insulin NPH/Insulin Regular,Human 70-30 100 Units/ML 10 ML Vial SUBCUT SCH (08:07)
[2020-02-16] MEDS: Docusate Sodium 100 MG Cap PO SCH (08:07)
[2020-02-16] MEDS: Nozin Nasal Sanitizer NASBOTH SCH (09:37)
[2020-02-16] MEDS: Gabapentin 400 MG Cap PO SCH ×2 (09:38→14:00)
[2020-02-16] MEDS: Sertraline 50 MG Tab PO SCH (09:38)
[2020-02-16] MEDS: Prazosin 1 MG Cap PO SCH (09:38)
[2020-02-16] MEDS: Enoxaparin 30 MG/0.3 ML Syringe SUBCUT SCH (09:39)
[2020-02-16] MEDS: oxyCODONE 5 MG Tab PO PRN (09:43)
--- NOTE | 2020-02-16 12:49 | PCM.DCSUM1 ---
Discharge Summary - Hospital Course Brief History: Mr. Poole is a 54-year-old gentleman who was admitted through the emergency department with right hip pain which occurred after a fall resulting in a right hip fracture. - Discharge Data Discharge Date: 02/16/20 Discharge Disposition: Home, Self-Care 01 Condition: Stable - Referral to Home Health Primary Care Physician: Wilfredo Sylvester MD - Discharge Diagnosis/Problem(s) (1) Status post hip surgery SNOMED Code(s): 192087390, 716061294 ICD Code: Z98.890 - OTHER SPECIFIED POSTPROCEDURAL STATES Status: Acute Current Visit: Yes Problem Details: ORIF Cannulated screws right hip (2) Subcapital fracture of right hip SNOMED Code(s): 257135201, 60430070099897194 ICD Code: S72.011A - UNSP INTRACAPSULAR FRACTURE OF RIGHT FEMUR, INIT FOR CLOS FX Status: Acute Current Visit: Yes Qualifiers: Encounter type: initial encounter Fracture type: closed Qualified Code(s): S72.011A - Unspecified intracapsular fracture of right femur, initial encounter for closed fracture (3) Diabetes mellitus, insulin dependent (IDDM), uncontrolled SNOMED Code(s): 74936896, 541151980 ICD Code: [id number] - Status: Chronic Current Visit: Yes (4) Chronic pain SNOMED Code(s): 58879563 ICD Code: G89.29 - OTHER CHRONIC PAIN Status: Chronic Current Visit: Yes Qualifiers: Chronic pain type: chronic pain syndrome Qualified Code(s): G89.4 - Chronic pain syndrome (5) Opioid use agreement exists SNOMED Code(s): 723007857, 109970086 ICD Code: Z79.891 - NURSERY LABORER (CURRENT) USE OF OPIATE ANALGESIC Status: Chronic Current Visit: Yes Onset Date: ~05/25/19 - Patient Summary/Data Consults: Consultations 02/12/20 16:54 Consult to Physician [CONS] Routine Consulting Provider: Owen Hernández Call Completed to Consulting Physician: Yes Reason for Consult: right hip fx Person Notified: RUNNER ON Date Notified: 02/12/20 Special Instructions: planning surgery tomorrow 02/13/20 18:13 OT Evaluation and Treatment [CONS] Routine Please Evaluate and Treat. OT Reason for Consult: ADL's This query below is only for informational purposes and is not editable. Admission Diagnosis/Problem: Fracture of right hip 02/13/20 18:14 Consult to Case Management/[place] [CONS] Routine Comment: Physician Instructions: Service(s) to be Consulted: Case Management Reason for Consult: Plan for Discharge PT Evaluation and Treatment [CONS] Routine Please Evaluate and Treat. PT Reason for Consult: Post op Ortho Surgery Special Instructions: s/p screwing of right hip fracture This query below is only for informational purposes and is not editable. Admission Diagnosis/Problem: Fracture of right hip PT Evaluation and Treatment [CONS] Routine Please Evaluate and Treat. PT Reason for Consult: Post op Ortho Surgery Knee Pending Discharge: Yes, 1- 2 days Special Instructions: Schedule first outpatient PT appointment in 3-5 day post discharge. This query below is only for informational purposes and is not editable. Admission Diagnosis/Problem: Fracture of right hip Hospital Course: Mr. Poole presented to the emergency room with right hip pain. He reports that he got out of bed this morning and got lightheaded and fell down. He fell sideways landing on his right hip. He had immediate and severe sharp pain in the right hip. He had difficulty bearing weight. He was evaluated by the ambulance but did not want to be transferred at that time. His pain has persisted and worsened throughout the day so he came in for evaluation. The pain gets much worse with any sort of movement. He has been taking his usual doses of oxycodone and they have not helped the pain. He is unable to bear weight. He reports that things had been normal for him prior to the fall. It is not unusual for him to have episodes of lightheadedness. Blood sugars have not been well controlled and his goal is to keep his blood sugars from dropping below 200. Work-up in the emergency room revealed an impacted subcapital fracture of the right hip. He was admitted for surgical management. On admission he was given IV fluids for hydration as well as medication as needed for pain and nausea. He was kept n.p.o. after night and was seen on the day after admission by Dr. Hernández. He underwent surgical repair of the hip fracture later that day. He did well during the postoperative course and by the time of discharge was able to transfer and ambulate with use of a walker with minimal assistance. Blood glucose levels were monitored throughout the hospital stay. Mr. Bland was very insistent about keeping his blood sugar greater than 200 and refused further aggressive management. He was started on DVT prophylaxis after surgery and this will be continued for total of 3 weeks. Activity will be as tolerated and he will resume a diabetic diet. Home care services will be arranged including home physical therapy and Occupational Therapy. Follow-up appointment will be scheduled with Dr. Hernández in 2 weeks. He has ongoing difficulty with chronic pain and will use his usual pain medication for management of postoperative pain from hip fracture repair. - Patient Instructions Diet: Diabetic Diet Activity: As Tolerated Other/Special Instructions: Please arrange for home care with home physical therapy and Occupational Therapy. Please schedule follow-up appointment with Dr. Hernández within 2 weeks. - Discharge Plan *PRESCRIPTION DRUG MONITORING PROGRAM REVIEWED*: No *COPY OF PRESCRIPTION DRUG MONITORING REPORT IN PATIENT SONG: No Prescriptions/Med Rec: Enoxaparin [Lovenox] 30 mg SUBCUT DAILY #19 syringe Home Medications: Home Meds atenoloL [Tenormin] 25 mg PO BEDTIME 06/22/13 [History] ClonazePAM [KlonoPIN] 2 mg PO BEDTIME 12/25/15 [History] Gabapentin [Neurontin] 1,600 mg PO TID 12/25/15 [History] Sertraline [Zoloft] 200 mg PO DAILY 12/25/15 [History] oxyCODONE HCl [Oxycodone HCl] 20 mg PO Q8H 12/25/15 [History] ARIPiprazole [Abilify] 2 mg PO DAILY 02/12/20 [History] Insulin NPH Hum/Reg Insulin Hm [Novolin 70-30 Flexpen] 20 unit SQ BIDAC 02/12/20 [History] Prazosin HCl [Prazosin] 1 mg PO DAILY 02/12/20 [History] Enoxaparin [Lovenox] 30 mg SUBCUT DAILY #19 syringe 02/16/20 [Rx] Patient Handouts: Hip Fracture Treated With ORIF, Care After, Preventing Constipation After Surgery Referrals: Owen Hernández MD [Physician] - 03/01/20 11:00 am (Please arrive 15 minutes early to register for your appointment. [place] at the ER desk for appointment.) - Discharge Summary/Plan Comment DC Time >30 min.: No - Patient Data Vitals - Most Recent: Last Vital Signs Temp 95.5 F L 02/16/20 07:47 Pulse 72 02/16/20 07:47 Resp 16 02/16/20 07:47 BP 158/80 H 02/16/20 09:38 Pulse Ox 94 L 02/16/20 07:47 Weight - Most Recent: 187 lb 0.008 oz I&O - Last 24 hours: Intake & Output 02/15/20 02/16/20 02/16/20 22:59 06:59 14:59 Intake Total 400 500 240 Output Total 1250 900 680 Balance -850 400 -440 Lab Results - Last 24 hrs: Laboratory Results - last 24 hr 02/15/20 02/15/20 02/16/20 Range/Units 16:30 21:00 07:49 POC Glucose 365 H 369 H 243 H (74-106) MG/DL 02/16/20 Range/Units 11:30 POC Glucose 289 H (74-106) MG/DL Med Orders - Current: Current Medications Acetaminophen (Tylenol) 650 mg PO Q4H PRN PRN Reason: Pain/Fever Hydrocodone Bitart/Acetaminophen ([place] 325-5 Mg) 1 tab PO Q6H PRN PRN Reason: Pain Albuterol (Proventil Neb Soln) 2.5 mg NEB Q4H PRN PRN Reason: Shortness Of Breath/wheezing Atenolol (Tenormin) 25 mg PO BEDTIME [facility] Last Admin: 02/15/20 21:11 Dose: 25 mg Documented by: Bandage/Support Products ( Nasal Material Reclaimer) 1 applic NASBOTH BID [facility] Last Admin: 02/16/20 09:37 Dose: 1 applic Documented by: Clonazepam (Klonopin) 2 mg PO BEDTIME [facility] Last Admin: 02/15/20 21:09 Dose: 2 mg Documented by: Docusate Sodium (Colace) 100 mg PO BID [facility] Last Admin: 02/16/20 08:07 Dose: Not Given Documented by: Enoxaparin Sodium (Lovenox) 30 mg SUBCUT DAILY [facility] Last Admin: 02/16/20 09:39 Dose: 30 mg Documented by: Gabapentin (Neurontin) 1,600 mg PO TID [facility] Last Admin: 02/16/20 09:38 Dose: 1,600 mg Documented by: Hydromorphone HCl (Dilaudid) 1 mg IVPUSH Q2H PRN PRN Reason: Pain (severe 7-10) Last Admin: 02/14/20 11:45 Dose: 1 mg Documented by: Insulin Human Isoph/Insulin Regular (Humulin 70-30) 20 units SUBCUT BIDAC [facility] Last Admin: 02/16/20 08:07 Dose: Not Given Documented by: Insulin Human Lispro (Humalog) 0 unit SUBCUT QIDACANDBED [facility]; Protocol Last Admin: 02/16/20 11:44 Dose: Not Given Documented by: Lorazepam (Ativan) 0.5 mg IVPUSH Q4H PRN PRN Reason: Nausea/Vomiting Magnesium Hydroxide (Milk Of Magnesia) 30 ml PO Q12H PRN PRN Reason: Constipation Morphine Sulfate (Morphine) 1 mg IVPUSH Q1H PRN PRN Reason: Breakthrough Pain Nicotine (Habitrol) 21 mg TRDERM DAILY PRN PRN Reason: nicotine craving Last Admin: 02/13/20 19:49 Dose: 21 mg Documented by: Ondansetron HCl (Zofran Odt) 4 mg PO Q6H PRN PRN Reason: Nausea able to take PO Ondansetron HCl (Zofran) 4 mg IVPUSH Q4H PRN PRN Reason: Nausea/Vomiting Oxycodone HCl (Oxycodone) 20 mg PO Q8H [facility] Last Admin: 02/16/20 05:54 Dose: 20 mg Documented by: Oxycodone HCl (Oxycodone) 20 mg PO Q4H PRN PRN Reason: Pain Last Admin: 02/16/20 09:43 Dose: 20 mg Documented by: Oxycodone/Acetaminophen (Percocet 325-5 Mg) 1 - 2 tab PO Q6H PRN PRN Reason: Pain Aripiprazole 2mg (Ptom) 0 each PO BEDTIME [facility] Last Admin: 02/15/20 21:10 Dose: 1 each Documented by: Prazosin HCl (Minpress) 1 mg PO DAILY [facility] Last Admin: 02/16/20 09:38 Dose: 1 mg Documented by: Senna/Docusate Sodium (Senna Plus) 1 tab PO BID PRN PRN Reason: Constipation Sertraline HCl (Zoloft) 200 mg PO DAILY [facility] Last Admin: 02/16/20 09:38 Dose: 200 mg Documented by: Discontinued Medications Acetaminophen (Tylenol) 650 mg PO Q4H PRN PRN Reason: Pain (Mild 1-3)/fever Last Admin: 02/12/20 20:36 Dose: 650 mg Documented by: Bupivacaine HCl/Epinephrine Bitart ([place] 0.5%/Epinephrine 1:200,000) Confirm Administered Dose 50 ml .ROUTE .STK-MED ONE Stop: 02/13/20 11:44 Fentanyl (Sublimaze) Confirm Administered Dose 100 mcg .ROUTE .STK-MED ONE Stop: 02/13/20 13:04 Hydromorphone HCl (Dilaudid) 0.5 mg IVPUSH ONETIME ONE Stop: 02/12/20 15:43 Last Admin: 02/12/20 15:47 Dose: 0.5 mg Documented by: Sodium Chloride (Normal Saline) 1,000 mls @ 75 mls[facility] Last Admin: 02/13/20 11:22 Dose: 75 mls/hr Documented by: Cefazolin Sodium 2 gm/ (Dextrose/Water) 100 mls @ 200 mls/hr IV ONETIME ONE Stop: 02/13/20 17:59 Last Admin: 02/13/20 16:54 Dose: 200 mls/hr Documented by: Sodium Chloride (Normal Saline) 1,000 mls @ 125 mls/hr [facility] Last Admin: 02/15/20 12:07 Dose: 125 mls/hr Documented by: Cefazolin Sodium 1 gm/ Sodium (Chloride) 50 mls @ 200 mls/hr IV Q8H [facility] Stop: 02/14/20 17:14 Last Admin: 02/14/20 01:05 Dose: 200 mls/hr Documented by: Cefazolin Sodium/Dextrose 1 gm (/ Premix) 50 mls @ 200 mls/hr IV Q8H [facility] Stop: 02/14/20 17:14 Last Admin: 02/14/20 16:49 Dose: 200 mls/hr Documented by: Insulin Human Isoph/Insulin Regular (Humulin 70-30) 20 units SUBCUT BIDAC [facility] Insulin Human Regular (Humulin R) 20 unit SUBCUT ONETIME ONE Stop: 02/12/20 16:15 Last Admin: 02/12/20 16:32 Dose: 20 unit Documented by: Ketorolac Tromethamine (Toradol) 30 mg IVPUSH Q8H [facility] Stop: 02/15/20 11:01 Last Admin: 02/15/20 12:00 Dose: 30 mg Documented by: Midazolam HCl (Versed 1 Mg/Ml) Confirm Administered Dose 2 mg .ROUTE .STK-MED ONE Stop: 02/13/20 13:04 Nicotine (Habitrol) 14 mg TRDERM DAILY PRN PRN Reason: nicotine craving Last Admin: 02/13/20 19:50 Dose: 14 mg Documented by: Ondansetron HCl (Zofran) 4 mg IV Q6H PRN PRN Reason: Nausea/Vomiting Pneumococcal Polyvalent Vaccine (Pneumovax 23) 0.5 ml IM .ONCE ONE Stop: 02/15/20 10:01 Last Admin: 02/15/20 11:57 Dose: Not Given Documented by: Propofol (Diprivan 20 Ml) Confirm Administered Dose 200 mg .ROUTE .STK-MED ONE Stop: 02/13/20 13:04 Propofol (Diprivan 20 Ml) Confirm Administered Dose 200 mg .ROUTE .STK-MED ONE Stop: 02/13/20 17:35 - Exam Quality Assessment: Reports: DVT Prophylaxis General: Reports: Alert, Oriented, Cooperative, Mild Distress Lungs: Reports: Clear to Auscultation, Normal Respiratory Effort Cardiovascular: Reports: Regular Rate, Regular Rhythm, No Murmurs GI/Abdominal Exam: Soft, Non-Tender, No Organomegaly, No Distention *Q Meaningful Use (DIS) - VTE *Q VTE Pharmacological Contraindications *Q: Patient Scheduled Surgery
--- NOTE | 2020-03-05 15:27 | OR ---
DATE OF PROCEDURE: 02/13/2020 SURGEON: Owen Hernández MD PREOPERATIVE DIAGNOSIS: Impacted right femoral neck fracture. POSTOPERATIVE DIAGNOSIS: Impacted right femoral neck fracture. PROCEDURE: Cannulated screw fixation, right femoral neck fracture. ANESTHESIA: Spinal with sedation. INDICATIONS: Mr. Poole is a 54-year-old gentleman who sustained a fall onto his right side, sustaining an impacted fracture of the right femoral neck. He now presents for percutaneous fixation of the fracture. Risks, benefits, potential complications of the procedure were discussed. DESCRIPTION OF PROCEDURE: After adequate anesthesia was obtained, patient was placed on the fracture table. Left hip and leg were prepped and draped in a sterile fashion. The fracture was visualized using fluoroscopy. A small incision was made distal to the trochanter, carried down through the subcutaneous tissues and the IT band was split for short distance. A guide pin for cannulated screw was then placed under fluoroscopic guidance. Position was confirmed on AP and lateral images. Pin guide was then utilized to place 2 additional guide pins in a triangular fashion. Position was again confirmed on AP and lateral images. Lengths were measured. Lateral cortex was drilled. Short-threaded cannulated screws were then placed over the guide pins. Pins were removed. Final position was checked on AP and lateral images once again. A good purchase was obtained in all screws. It was irrigated. A single stitch was placed in the IT band. Skin was closed with 2-0 Vicryl and a running 3-0 Monocryl and Steri-Strips were applied. Sterile dressing was then placed. The patient tolerated procedure very well. There were no complications. Taken from the operating room in stable condition. Owen Hernández MD /[id number]
== END 2020-02-16 14:10 | disposition home or self-care (01) | DRG 308 ==
LOC: JP.ED 14:28 → JP.ICU 16:28 → JP.MS 02-13 12:49
PROVIDERS: ADMIT Internal Medicine; ATTEND Hospitalist
PROC: 0QS634Z Reposition Right Upper Femur with Internal Fixation Device, Percutaneous Approach (ICD-10-PCS; principal; 2020-02-13)
DX: S72.011A Unspecified intracapsular fracture of right femur, initial encounter for closed fracture (principal); G89.4 Chronic pain syndrome; E78.00 Pure hypercholesterolemia, unspecified; E11.42 Type 2 diabetes mellitus with diabetic polyneuropathy; F41.9 Anxiety disorder, unspecified; F32.9 Major depressive disorder, single episode, unspecified; F17.220 Nicotine dependence, chewing tobacco, uncomplicated; Z20.822 Contact with and (suspected) exposure to COVID-19; E11.65 Type 2 diabetes mellitus with hyperglycemia; Z79.891 Long term (current) use of opiate analgesic; Z88.8 Allergy status to other drugs, medicaments and biological substances; Z79.4 Long term (current) use of insulin; Z79.899 Other long term (current) drug therapy; W19.XXXA Unspecified fall, initial encounter
CPT/HCPCS: 36415; 73502-26-RT; 73502-RT; 73610-26-RT; 73610-RT; 73700-RT; 76000; 80048; 82962; 85025; 85027; 85610; 96374; 97110-GP; 97162-GP; 97166-GO; 97530-GP; 97535-GO; 97535-GP; 99222-AI; 99231; 99232; 99238; 99284; 99285-25; A9270-GY; C1713; C1769; J0690; J1170; J1650; J1815; J1815-GY; J1885; J2250; J2704; J3010; J3490; J7030; J7060; U0002

== ENCOUNTER 2020-10-03 15:41 | Emergency (ER) | payer BC ==
--- NOTE | 2020-10-03 16:43 | EDM.PDOC ---
ED HPI GENERAL MEDICAL PROBLEM - General Chief Complaint: Respiratory Problem Stated Complaint: COVID SYMPTOMS Time Seen by Provider: 10/03/20 16:10 Source of Information: Reports: Patient History Limitations: Reports: No Limitations - History of Present Illness INITIAL COMMENTS - FREE TEXT/NARRATIVE: 55-year-old male presents with extreme fatigue, weakness, generalized malaise shooting pain down his left leg due to likely Covid infection. He is an insulin-dependent diabetic and does have comorbidities. His main complaint is extreme weakness. No nausea or vomiting. His tested positive for Covid earlier this week and is doing well. He did have a 1 shot vaccine 1 month ago, he is having intermittent low-grade fevers. Mostly he just feels "wiped out". Onset: Gradual Duration: Day(s): (3 days of symptoms) Generalized Pain Score (Numeric/FACES): 10 - Related Data Allergies Allergy/AdvReac Type Severity Reaction Status Date / Time gluten Allergy Other Verified 10/03/20 16:22 liraglutide [From Victoza] Allergy Abdominal Verified 10/03/20 16:22 Pain metformin Allergy Diarrhea Verified 10/03/20 16:22 sitagliptin [From Januvia] Allergy Diarrhea Verified 10/03/20 16:22 Trhivjy-Ddj-Qcq Reductase Allergy Muscle Verified 10/03/20 16:22 Inhibitor Aches Home Meds: Home Meds atenoloL [Tenormin] 25 mg PO BEDTIME 06/22/13 [History] ClonazePAM [KlonoPIN] 2 mg PO BEDTIME 12/25/15 [History] Gabapentin [Neurontin] 1,600 mg PO TID 12/25/15 [History] Sertraline [Zoloft] 200 mg PO DAILY 12/25/15 [History] oxyCODONE HCl [Oxycodone HCl] 5 mg PO Q8H 12/25/15 [History] ARIPiprazole [Abilify] 2 mg PO DAILY 02/12/20 [History] Insulin NPH Hum/Reg Insulin Hm [Novolin 70-30 Flexpen] 20 unit SQ BIDAC 02/12/20 [History] Prazosin HCl [Prazosin] 1 mg PO DAILY 02/12/20 [History] Mupirocin Oint [Bactroban Oint] 1 applic TOP TID 04/09/20 [History] Tolnaftate [Tinactin] 1 applic TP BID 04/09/20 [History] polyethylene glycoL 3350 [MiraLAX] 17 gm PO DAILY 04/09/20 [History] Past Medical History HEENT History: Reports: Hard of Hearing, Other (See Below) Other HEENT History: tinitis, diabetic problems with eyes Cardiovascular History: Reports: Arrhythmia, High Cholesterol Respiratory History: Reports: None Gastrointestinal History: Reports: Chronic Diarrhea, GERD, Other (See Below) Other Gastrointestinal History: Cdiff approximately 2015 Genitourinary History: Reports: Chronic Renal Insuffiency, Diabetic Nephropathy, Other (See Below) Other Genitourinary History: difficulty urinating, level 2 renal failure Musculoskeletal History: Reports: Back Pain, Chronic, Osteoarthritis, Other (See Below) Other Musculoskeletal History: neuropathy Neurological History: Reports: Concussion, Headaches, Chronic, Neuropathy, Diabetic, Other (See Below) Other Neuro History: occasional photophobia with headache. Psychiatric History: Reports: None Endocrine/Metabolic History: Reports: Diabetes, Type II Hematologic History: Reports: None Immunologic History: Reports: None Oncologic (Cancer) History: Reports: None Dermatologic History: Reports: Other (See Below) Other Dermatologic History: diabetic sores to his feet bilaterally. - Infectious Disease History Infectious Disease History: Reports: C-Difficile, Chicken Pox - Past Surgical History Head Surgeries/Procedures: Reports: None GI Surgical History: Reports: EGD Other GI Surgeries/Procedures: esophagus, acid reflux Endocrine Surgical History: Reports: None Musculoskeletal Surgical History: Reports: None, Other (See Below) Other Musculoskeletal Surgeries/Procedures:: right hip pinning 02/13/20 Social & Family History - Family History Family Medical History: No Pertinent Family History - Tobacco Use Tobacco Use Status *Q: Never Tobacco User - Caffeine Use Caffeine Use: Reports: Soda - Recreational Drug Use Recreational Drug Use: No ED ROS GENERAL - Review of Systems Review Of Systems: See Below Constitutional: Reports: Fever, Chills, Malaise HEENT: Denies: Throat Pain Respiratory: Reports: Shortness of Breath. Denies: Cough Cardiovascular: Denies: Chest Pain, Palpitations GI/Abdominal: Denies: Nausea, Vomiting Skin: Reports: No Symptoms Neurological: Reports: Other (Sharp shooting pain intermittently down the left leg) Psychiatric: Reports: No Symptoms ED EXAM, GENERAL - Physical Exam Exam: See Below Exam Limited By: No Limitations General Appearance: Alert, No Apparent Distress, Other (Looks tired but not distressed, O2 sats 90 to 94% on room air. Respiratory rate is normal, shallow nonlabored) Eye Exam: Bilateral Eye: Conjunctival Injection (Just slight conjunctival injection, otherwise negative) Head: Atraumatic Neck: Non-Tender Respiratory/Chest: No Respiratory Distress, Lungs Clear (Lungs sound real good, real clear) Cardiovascular: Regular Rate, Rhythm, Tachycardia (Mild tachycardia) GI/Abdominal: Soft, Non-Tender Neurological: Alert, Oriented Psychiatric: Flat Affect Skin Exam: Warm, Dry Course - Vital Signs Last Recorded V/S: Last Vital Signs Temp 98.2 F 10/03/20 16:30 Pulse 108 H 10/03/20 17:00 Resp 16 10/03/20 16:30 BP 130/69 10/03/20 17:00 Pulse Ox 89 L 10/03/20 17:00 - Orders/Labs/Meds Labs: Laboratory Tests 10/03/20 Range/Units 16:26 SARS CoV-2 RNA Rapid JU Positive H - Re-Assessments/Exams Free Text/Narrative Re-Assessment/Exam: 10/03/20 17:35 Covid test was obtained and was positive. Patient does meet criteria for BAM therapy, this was scheduled for tomorrow morning. I would expect him to improve from this point on. He will be rechecked tomorrow when he comes in for his therapy. Departure - Departure Time of Disposition: 18:35 Disposition: Home, Self-Care 01 Clinical Impression: COVID-19 - Discharge Information Instructions: COVID-19 Referrals: PCP,None [Primary Care Provider] - Forms: ED Department Discharge Care Plan Goals: Return tomorrow for your antibody therapy as discussed. Rest tonight, return anytime if worsening such as significant difficulty breathing or persistent vomiting. Sepsis Event Note (ED) - Evaluation Sepsis Screening Result: No Definite Risk
[2020-10-03 17:00] VITALS: BP 130/69; PULSE 108
== END 2020-10-03 18:35 | disposition home or self-care (01) ==
LOC: JP.ED 15:41
DX: U07.1 COVID-19 (principal); E78.00 Pure hypercholesterolemia, unspecified; E11.21 Type 2 diabetes mellitus with diabetic nephropathy; E11.40 Type 2 diabetes mellitus with diabetic neuropathy, unspecified; E11.22 Type 2 diabetes mellitus with diabetic chronic kidney disease; N18.9 Chronic kidney disease, unspecified; Z91.018 Allergy to other foods; Z88.8 Allergy status to other drugs, medicaments and biological substances; Z79.4 Long term (current) use of insulin
CPT/HCPCS: 99284; U0002

== ENCOUNTER 2020-11-02 16:11 | Emergency (ER) | payer BC ==
--- NOTE | 2020-11-02 16:44 | EDM.PDOC ---
ED HPI GENERAL MEDICAL PROBLEM - General Chief Complaint: General Stated Complaint: MEDICAL [facility] Time Seen by Provider: 11/02/20 16:20 Source of Information: Reports: Patient, Provider History Limitations: Reports: No Limitations - History of Present Illness INITIAL COMMENTS - FREE TEXT/NARRATIVE: 55 yo male had a follow up appt in the [facility] for an abscess on his L flank. He had previously been seen in the [place] [facility] where an ER doctor performed an I&D + packing. He also had been referred from the ER to a surgeon in [place] who felt that no further surgical intervention was needed. They are on oral antibiotics currently and the says the area looks gradually better. Someone has been changing the packing once a day. Today it was perceived in the [facility] that his BP was low and they were worried about sepsis so sent him to our ER via EMS. EMS says his BP was 120 for them en route and he was able walk under his own power out to the ambulance. Onset: Gradual Duration: Day(s):, Improving Location: Reports: Back Quality: Reports: Dull Severity: Mild Improves with: Reports: Other (time, much better post I&D) Worsens with: Reports: None Context: Reports: Other (See HPI) Associated Symptoms: Reports: No Other Symptoms Treatments MANAGER PUBLIC: Reports: Other (see below) (See HPI) Back Pain Score (Numeric/FACES): 6 - Related Data Allergies Allergy/AdvReac Type Severity Reaction Status Date / Time gluten Allergy Other Verified 11/02/20 16:20 liraglutide [From Victoza] Allergy Abdominal Verified 11/02/20 16:20 Pain metformin Allergy Diarrhea Verified 11/02/20 16:20 sitagliptin [From Januvia] Allergy Diarrhea Verified 11/02/20 16:20 Blcuasl-Spr-Nov Reductase Allergy Muscle Verified 11/02/20 16:20 Inhibitor Aches Home Meds: Home Meds atenoloL [Tenormin] 25 mg PO BEDTIME 06/22/13 [History] ClonazePAM [KlonoPIN] 2 mg PO BEDTIME 12/25/15 [History] Gabapentin [Neurontin] 1,600 mg PO TID 12/25/15 [History] Sertraline [Zoloft] 200 mg PO DAILY 12/25/15 [History] oxyCODONE HCl [Oxycodone HCl] 5 mg PO Q8H 12/25/15 [History] ARIPiprazole [Abilify] 2 mg PO DAILY 02/12/20 [History] Insulin NPH Hum/Reg Insulin Hm [Novolin 70-30 Flexpen] 20 unit SQ BIDAC 02/12/20 [History] Prazosin HCl [Prazosin] 1 mg PO DAILY 02/12/20 [History] Mupirocin Oint [Bactroban Oint] 1 applic TOP TID 04/09/20 [History] Tolnaftate [Tinactin] 1 applic TP BID 04/09/20 [History] polyethylene glycoL 3350 [MiraLAX] 17 gm PO DAILY 04/09/20 [History] Past Medical History HEENT History: Reports: Hard of Hearing, Other (See Below) Other HEENT History: tinitis, diabetic problems with eyes Cardiovascular History: Reports: Arrhythmia, High Cholesterol Respiratory History: Reports: None Gastrointestinal History: Reports: Chronic Diarrhea, GERD, Other (See Below) Other Gastrointestinal History: Cdiff approximately 2015 Genitourinary History: Reports: Chronic Renal Insuffiency, Diabetic Nephropathy, Other (See Below) Other Genitourinary History: difficulty urinating, level 2 renal failure Musculoskeletal History: Reports: Back Pain, Chronic, Osteoarthritis, Other (See Below) Other Musculoskeletal History: neuropathy Neurological History: Reports: Concussion, Headaches, Chronic, Neuropathy, Diabetic, Other (See Below) Other Neuro History: occasional photophobia with headache. Psychiatric History: Reports: None Endocrine/Metabolic History: Reports: Diabetes, Type II Hematologic History: Reports: None Immunologic History: Reports: None Oncologic (Cancer) History: Reports: None Dermatologic History: Reports: Other (See Below) Other Dermatologic History: diabetic sores to his feet bilaterally. - Infectious Disease History Infectious Disease History: Reports: C-Difficile, Chicken Pox - Past Surgical History Head Surgeries/Procedures: Reports: None GI Surgical History: Reports: EGD Other GI Surgeries/Procedures: esophagus, acid reflux Endocrine Surgical History: Reports: None Musculoskeletal Surgical History: Reports: None, Other (See Below) Other Musculoskeletal Surgeries/Procedures:: right hip pinning 02/13/20 Social & Family History - Family History Family Medical History: No Pertinent Family History - Caffeine Use Caffeine Use: Reports: Soda ED ROS GENERAL - Review of Systems Review Of Systems: See Below Constitutional: Reports: No Symptoms HEENT: Reports: No Symptoms Respiratory: Reports: No Symptoms Cardiovascular: Reports: Lightheadedness Skin: Reports: Erythema, Wound (R flank-not new) Neurological: Reports: No Symptoms ED EXAM, GENERAL - Physical Exam Exam: See Below Exam Limited By: No Limitations General Appearance: Alert, WD/WN, No Apparent Distress Nose: Normal Inspection Throat/Mouth: Normal Voice, No Airway Compromise Head: Atraumatic, Normocephalic Respiratory/Chest: No Respiratory Distress, Lungs Clear, Normal Breath Sounds, No Accessory Muscle Use Cardiovascular: Regular Rate, Rhythm, No Edema, Tachycardia Neurological: Alert, Oriented, CN II-XII Intact, Normal Cognition, No Motor/Sensory Deficits Skin Exam: Warm, Dry, No Rash, Erythema (there is an abcess to the R flank area that has packing in place that has already been changeed today. The color is a purplish/red, not a bright red. The area is a little warm, but not hot to touch. ) Course - Vital Signs Last Recorded V/S: Last Vital Signs Temp 36.2 C 11/02/20 16:17 Pulse 111 H 11/02/20 16:17 Resp 16 11/02/20 16:17 BP 115/71 11/02/20 16:17 Pulse Ox 96 11/02/20 16:17 Orthostatic Blood Pressure [ 88/59 Standing] Orthostatic Blood Pressure [ 102/72 Sitting] Orthostatic Blood Pressure [ 127/84 Supine] - Orders/Labs/Meds Orders: Active Orders 24 hr Category Date Time Status Orthostatic Vital Signs [RC] ASDIRECTED Care 11/02/20 16:44 Active Lactated Ringers [Ringers, Lactated] 1,000 ml Med 11/02/20 16:52 Active IV BOLUS Medication Orders Lactated Ringer's (Ringers, Lactated) 1,000 mls @ 1,000 mls/hr IV BOLUS ONE Stop: 11/02/20 17:51 Last Admin: 11/02/20 17:10 Dose: 1,000 mls/hr Documented by: AHSAN Labs: Laboratory Tests 11/02/20 11/02/20 11/02/20 Range/Units 16:47 16:47 16:47 WBC 10.8 (4.5-11.0) K/uL RBC 5.03 (4.30-5.90) M/uL Hgb 13.6 (12.0-15.0) g/dL Hct 41.7 (40.0-54.0) % MCV 83 (80-98) fL MCH 27 (27-31) pg MCHC 33 (32-36) % Plt Count 508 H (150-400) K/uL Sodium 130 L (140-148) mmol/L Potassium 4.9 (3.6-5.2) mmol/L Chloride 95 L (100-108) mmol/L Carbon Dioxide 29 (21-32) mmol/L Anion Gap 10.9 (5.0-14.0) mmol/L BUN 19 H D (7-18) mg/dL Creatinine 1.1 D (0.8-1.3) mg/dL Est Cr Clr Drug Dosing 79.27 mL/min Estimated GFR (MDRD) > 60 (>60) Glucose 303 H (74-106) mg/dL Lactic Acid 1.4 (0.4-2.0) mmol/L Calcium 9.3 D (8.5-10.1) mg/dL Meds: Medications Generic Name Dose Route Start Last Admin Trade Name Freq PRN Reason Stop Dose Admin Lactated Ringer's 1,000 mls @ 1,000 mls/hr 11/02/20 16:52 11/02/20 17:10 Ringers, Lactated IV 11/02/20 17:51 1,000 mls/hr BOLUS ONE Administration Departure - Departure Time of Disposition: 18:05 Disposition: Home, Self-Care 01 Condition: Good Clinical Impression: Orthostasis, Elevated blood sugar, Encounter for wound re-check - Discharge Information *PRESCRIPTION DRUG MONITORING PROGRAM REVIEWED*: Not Applicable *COPY OF PRESCRIPTION DRUG MONITORING REPORT IN PATIENT SONG: Not Applicable Referrals: PCP,None [Primary Care Provider] - Forms: ED Department Discharge Additional Instructions: Continue all your present cares. F/U in the clinic as previously directed. Drink ample fluids to maintain hydration. Continue working on getting your blood sugars down. Return as needed. Sepsis Event Note (ED) - Evaluation Sepsis Screening Result: No Definite Risk - Focused Exam Vital Signs: Vital Signs Temp Pulse Resp BP Pulse Ox 11/02/20 16:17 36.2 C 111 H 16 115/71 96 11/02/20 16:13 36.2 C 111 H 16 115/71 96 - My Orders Last 24 Hours: My Active Orders 11/02/20 16:44 Orthostatic Vital Signs [RC] ASDIRECTED 11/02/20 16:52 Lactated Ringers [Ringers, Lactated] 1,000 ml IV BOLUS - Assessment/Plan Last 24 Hours: My Active Orders 11/02/20 16:44 Orthostatic Vital Signs [RC] ASDIRECTED 11/02/20 16:52 Lactated Ringers [Ringers, Lactated] 1,000 ml IV BOLUS
[2020-11-02] MEDS ORDERED: Lactated Ringers 1,000 ML IV ONE (16:52)
[2020-11-02 17:38] VITALS: BP 134/90; PULSE 89
== END 2020-11-02 18:50 | disposition home or self-care (01) ==
LOC: JP.ED 16:11
DX: E11.65 Type 2 diabetes mellitus with hyperglycemia (principal); E11.40 Type 2 diabetes mellitus with diabetic neuropathy, unspecified; E11.22 Type 2 diabetes mellitus with diabetic chronic kidney disease; E11.21 Type 2 diabetes mellitus with diabetic nephropathy; N18.9 Chronic kidney disease, unspecified; L02.211 Cutaneous abscess of abdominal wall; E78.00 Pure hypercholesterolemia, unspecified; K21.9 Gastro-esophageal reflux disease without esophagitis; Z91.018 Allergy to other foods; Z88.8 Allergy status to other drugs, medicaments and biological substances; Z79.4 Long term (current) use of insulin; Z79.899 Other long term (current) drug therapy
CPT/HCPCS: 36415; 80048; 83605; 85027; 99284; J7120

== ENCOUNTER 2021-03-28 08:19 | Emergency (ER) | payer BC ==
[2021-03-28 09:12] VITALS: BP 135/89; PULSE 94
== END 2021-03-28 09:57 | disposition home or self-care (01) ==
LOC: JP.ED 08:19
DX: N41.9 Inflammatory disease of prostate, unspecified (principal); E11.40 Type 2 diabetes mellitus with diabetic neuropathy, unspecified; E78.00 Pure hypercholesterolemia, unspecified; Z79.4 Long term (current) use of insulin; Z88.8 Allergy status to other drugs, medicaments and biological substances; Z79.899 Other long term (current) drug therapy
CPT/HCPCS: 81001; 87086; 87088; 87186; 99283

== ENCOUNTER 2021-04-26 16:01 | Emergency (ER) | payer BC ==
[2021-04-26] MEDS ORDERED: Sodium Chloride 0.9% 10 ML Syringe FLUSH PRN (16:41)
[2021-04-26] MEDS ORDERED: Ondansetron 4 MG/2 ML SDV IVPUSH ONE ×2 (17:40→19:52)
[2021-04-26] MEDS ORDERED: Sodium Chloride 0.9% 1,000 ML IV SCH ×2 (17:45→19:30)
[2021-04-26] MEDS ORDERED: Sodium Chloride 0.9% 75 ML IV SCH (18:15)
[2021-04-26] MEDS ORDERED: Iopamidol 612 MG/ML 100 ML Bottle IV SCH (18:15)
[2021-04-26] MEDS ORDERED: Lidocaine 2% Jelly 10 ML Urojet MUCMEM ONE ×2 (18:53)
[2021-04-26] MEDS ORDERED: cefTRIAXone 2 GM in Sodium Chloride 0.9% 50 ML IV ONE (19:22)
[2021-04-26] MEDS ORDERED: oxyCODONE 5 MG Tab PO ONE (19:41)
[2021-04-26] MEDS ORDERED: HYDROmorphone 1 MG/ML Syringe IVPUSH ONE (19:53)
[2021-04-26] MEDS ORDERED: Pantoprazole 40 MG Vial IVPUSH ONE (20:11)
[2021-04-26] MEDS ORDERED: Aluminum Hydroxide/Magnesium Hydroxide/Simethicone Susp 30 ML Cup PO STA (20:11)
[2021-04-26 20:42] VITALS: BP 134/81; PULSE 99
== END 2021-04-26 20:54 ==
LOC: JP.ED 16:01
DX: N10 Acute pyelonephritis (principal); N41.0 Acute prostatitis; B96.89 Other specified bacterial agents as the cause of diseases classified elsewhere; E11.65 Type 2 diabetes mellitus with hyperglycemia; E87.1 Hypo-osmolality and hyponatremia; E78.00 Pure hypercholesterolemia, unspecified; K21.9 Gastro-esophageal reflux disease without esophagitis; E11.40 Type 2 diabetes mellitus with diabetic neuropathy, unspecified; E11.21 Type 2 diabetes mellitus with diabetic nephropathy; E11.22 Type 2 diabetes mellitus with diabetic chronic kidney disease; N18.9 Chronic kidney disease, unspecified; Z91.018 Allergy to other foods; Z88.8 Allergy status to other drugs, medicaments and biological substances; Z79.4 Long term (current) use of insulin; Z79.899 Other long term (current) drug therapy; Z20.822 Contact with and (suspected) exposure to COVID-19
CPT/HCPCS: 36415; 51702; 71045; 71045-26; 74177; 80053; 81001; 83605; 85025; 86140; 87040; 87077; 87086; 87088; 87186; 96365; 96375; 96376; 99284; 99285-25; A9270-GY; C9113; J0696; J1170; J2405; J7030; Q9967; U0002

== ENCOUNTER 2021-11-08 13:47 | Inpatient (IN) | payer BC ==
[2021-11-08] MEDS ORDERED: Gabapentin 100 MG Cap PO ONE (14:30)
[2021-11-08] MEDS ORDERED: HYDROmorphone 1 MG/ML Syringe IM ONE (14:30)
[2021-11-08] MEDS ORDERED: Gabapentin 400 MG Cap PO ONE (14:55)
[2021-11-08] MEDS ORDERED: Glucose Gel 15 GM in 37.5 GM Tube PO PRN (16:30)
[2021-11-08] MEDS ORDERED: oxyCODONE 5 MG Tab PO PRN (16:30)
[2021-11-08] MEDS ORDERED: Ondansetron 4 MG/2 ML SDV IV PRN (16:30)
[2021-11-08] MEDS ORDERED: Acetaminophen 325 MG Tab PO PRN (16:30)
[2021-11-08] MEDS ORDERED: LORazepam 0.5 MG Tab PO PRN (16:30)
[2021-11-08] MEDS ORDERED: 50% Dextrose in Water 50 ML Syringe IV PRN (16:30)
[2021-11-08] MEDS: Insulin NPH HUM/REG Insulin HM 100 UNIT/ML 3 ML Vial SQ SCH (17:11)
[2021-11-08] MEDS: Insulin Lispro 100 Unit/ML 3 ML KwikPen SUBCUT SCH ×2 (17:11→21:07)
[2021-11-08] MEDS: Enoxaparin 30 MG/0.3 ML Syringe SUBCUT SCH (17:34)
[2021-11-08] MEDS: Morphine 30 MG Tab.ER PO SCH (17:40)
[2021-11-08] MEDS: ClonazePAM 1 MG Tab PO SCH (21:10)
[2021-11-08] MEDS: Gabapentin 400 MG Cap PO SCH (21:10)
[2021-11-08] MEDS: Atenolol 25 MG Tab PO SCH (21:11)
[2021-11-09] MEDS: Morphine 30 MG Tab.ER PO SCH ×2 (05:27→17:28)
[2021-11-09] MEDS ORDERED: ARIPiprazole 10 MG Tab PO SCH (09:00)
[2021-11-09] MEDS: Insulin Lispro 100 Unit/ML 3 ML KwikPen SUBCUT SCH ×4 (09:18→20:30)
[2021-11-09] MEDS: Gabapentin 400 MG Cap PO SCH ×3 (09:23→20:34)
[2021-11-09] MEDS: Polyethylene Glycol 3350 Powder 17 GM Packet PO SCH (09:24)
[2021-11-09] MEDS: Sertraline 50 MG Tab PO SCH (09:24)
[2021-11-09] MEDS: Prazosin 1 MG Cap PO SCH (09:24)
[2021-11-09] MEDS: Insulin NPH HUM/REG Insulin HM 100 UNIT/ML 3 ML Vial SQ SCH ×2 (09:25→15:57)
[2021-11-09] MEDS: Enoxaparin 30 MG/0.3 ML Syringe SUBCUT SCH (17:32)
[2021-11-09] MEDS: ClonazePAM 1 MG Tab PO SCH (20:33)
[2021-11-09] MEDS: ARIPiprazole 10 MG Tab PO SCH (20:35)
[2021-11-09] MEDS: Atenolol 25 MG Tab PO SCH (20:36)
[2021-11-10] MEDS: Morphine 30 MG Tab.ER PO SCH ×2 (05:15→17:46)
[2021-11-10] MEDS: Insulin Lispro 100 Unit/ML 3 ML KwikPen SUBCUT SCH ×4 (08:30→19:39)
[2021-11-10] MEDS: Insulin NPH HUM/REG Insulin HM 100 UNIT/ML 3 ML Vial SQ SCH ×2 (08:30→16:07)
[2021-11-10] MEDS ORDERED: Sodium Chloride 0.9% 1,000 ML IV SCH (10:00)
[2021-11-10] MEDS: Prazosin 1 MG Cap PO SCH (10:51)
[2021-11-10] MEDS: Gabapentin 400 MG Cap PO SCH ×4 (10:54→22:20)
[2021-11-10] MEDS: Polyethylene Glycol 3350 Powder 17 GM Packet PO SCH (10:54)
[2021-11-10] MEDS: Sertraline 50 MG Tab PO SCH (10:55)
[2021-11-10] MEDS: Enoxaparin 30 MG/0.3 ML Syringe SUBCUT SCH (17:45)
[2021-11-10] MEDS: ARIPiprazole 10 MG Tab PO SCH ×2 (20:48→22:20)
[2021-11-10] MEDS: Atenolol 25 MG Tab PO SCH ×2 (20:49→22:21)
[2021-11-10] MEDS: ClonazePAM 1 MG Tab PO SCH ×2 (20:50→22:20)
[2021-11-10] MEDS ORDERED: Acetaminophen 1,000 MG in Premix Bag 1 BAG IV ONE (21:08)
[2021-11-10] MEDS ORDERED: cefTRIAXone 2 GM in Sodium Chloride 0.9% 50 ML IV ONE (21:09)
[2021-11-10] MEDS ORDERED: Morphine 2 MG/ML SYRINGE IVPUSH PRN (21:48)
[2021-11-11] MEDS ORDERED: Sodium Chloride 0.9% 1,000 ML IV SCH (00:01)
[2021-11-11 00:39] VITALS: PULSE 72
[2021-11-11 00:55] VITALS: BP 105/45
[2021-11-11] MEDS ORDERED: Glucose Gel 15 GM in 37.5 GM Tube PO ONE (17:00)
[2021-11-12] MEDS ORDERED: LORazepam 2 MG/ML SDV ONE (22:07)
[2021-11-13] MEDS ORDERED: Morphine 10 MG/0.5 ML Oral Syringe ONE ×4 (10:47→23:12)
[2021-11-13] MEDS ORDERED: Lidocaine 2% Jelly 10 ML Urojet ONE (10:47)
[2021-11-13] MEDS ORDERED: Lidocaine 2% Jelly 10 ML Urojet MUCMEM ONE (11:00)
[2021-11-13] MEDS ORDERED: LORazepam ORAL Concentrate 1MG/0.5ML U/D ONE ×5 (11:11→23:13)
[2021-11-13] MEDS ORDERED: Haloperidol Lactate 5 MG/ML SDV ONE (14:18)
[2021-11-13] MEDS ORDERED: Lactated Ringers 1,000 ML IV ONE (22:15)
[2021-11-14] MEDS ORDERED: Morphine 10 MG/0.5 ML Oral Syringe ONE ×9 (02:07→22:14)
[2021-11-14] MEDS ORDERED: LORazepam ORAL Concentrate 1MG/0.5ML U/D ONE ×6 (03:06→22:14)
[2021-11-14] MEDS ORDERED: Gabapentin 400 MG Cap PO ONE ×3 (10:30→21:55)
[2021-11-15] MEDS ORDERED: Morphine 10 MG/0.5 ML Oral Syringe ONE ×5 (02:44→13:39)
[2021-11-15] MEDS ORDERED: LORazepam ORAL Concentrate 1MG/0.5ML U/D ONE ×4 (02:46→13:40)
[2021-11-15] MEDS ORDERED: Gabapentin 400 MG Cap PO ONE (09:00)
== END 2021-11-15 14:00 | disposition hospice, inpatient (51) | DRG 340 ==
LOC: JP.ED 13:47 → JP.ICU 15:55 → JP.ZCENSUS 11-11 11:36
PROVIDERS: ADMIT Hospitalist; ATTEND Hospitalist
DX: S72.012A Unspecified intracapsular fracture of left femur, initial encounter for closed fracture (principal); S82.51XA Displaced fracture of medial malleolus of right tibia, initial encounter for closed fracture; E11.42 Type 2 diabetes mellitus with diabetic polyneuropathy; N18.30 Chronic kidney disease, stage 3 unspecified; E11.65 Type 2 diabetes mellitus with hyperglycemia; G89.4 Chronic pain syndrome; Z51.5 Encounter for palliative care; Z66 Do not resuscitate; Z20.822 Contact with and (suspected) exposure to COVID-19; E11.21 Type 2 diabetes mellitus with diabetic nephropathy; E11.319 Type 2 diabetes mellitus with unspecified diabetic retinopathy without macular edema; R41.0 Disorientation, unspecified; T40.2X5A Adverse effect of other opioids, initial encounter; H91.90 Unspecified hearing loss, unspecified ear; E78.00 Pure hypercholesterolemia, unspecified; K21.9 Gastro-esophageal reflux disease without esophagitis; E11.22 Type 2 diabetes mellitus with diabetic chronic kidney disease; M19.90 Unspecified osteoarthritis, unspecified site; M54.9 Dorsalgia, unspecified; I50.9 Heart failure, unspecified; Z79.4 Long term (current) use of insulin; Z88.8 Allergy status to other drugs, medicaments and biological substances; Z87.01 Personal history of pneumonia (recurrent); W19.XXXA Unspecified fall, initial encounter
CPT/HCPCS: 51702; 73502-26-LT; 73502-LT; 73562-26-LT; 73562-LT; 73610-50; 736105026; 82947; 93971-26; 93971-RT; 94762; 99222; 99232; 99233; 99238; 99284; A9270-GY; J0131; J1170; J1630; J1650; J1815-GY; J2060; J2270; J2405; J7120; U0002